=== PATIENT | female | born 1935 | race Caucasian/White ===

== ENCOUNTER → 2022-05-14 | Outpatient (REF) | payer MEDICARE, SELFPAY ==
[2022-05-14 07:22] LABS: ALB/GLOB Ratio 0.8 RATIO (0.9-2.4); AST(SGOT) 16 U/L (15-37); Alanine Aminotransfer ALT/SGPT 23 U/L (13-56); Albumin, Serum 2.6 g/dL (3.2-5.0); Alkaline Phosphatase 69 U/L (45-117); Anion Gap 3 (5-15); BUN 13 mg/dL (7-18); BUN/Creat Ratio 15.7 RATIO (10-20); Calcium,Total 8.4 mg/dL (8.5-10.1); Chloride 108 mmol/L (98-107); Creatinine, Serum 0.83 mg/dL (0.55-1.02); EST Glomerular Filtration Rate 69 mL/min (>60); Est Glom Filt Rate - Afr Amer 84 mL/min (>60); Globulin 3.1 g/dL (2.2-4.2); Glucose 94 mg/dL (74-106); Potassium 3.5 mmol/L (3.5-5.1); Protein, Total 5.7 g/dL (6.4-8.2); Sodium Level 143 mmol/L (136-145); Uric Acid 7.7 mg/dL (2.6-6.0)
[2022-05-14 08:03] LABS: Hematocrit 42.8 % (37-47); Hemoglobin 13.8 g/dL (12.0-15.0); Mean Corp Hgb Conc 32.2 g/dL (32-36); Mean Corpuscular Hgb 30.4 pg (27.0-32.0); Mean Corpuscular Volume 94.3 fL (81-99); Mean Platelet Vol. 9.6 fl (6.2-12.0); Platelet Count 148 K/mm3 (150-450); RBC Distribution Width SD 44.8 fl (35.1-43.9); Red Blood Count 4.54 M/mm3 (4.2-5.4); White Blood Count 5.5 K/mm3 (4.4-11.0)
== END ==
LOC: OLS.DANBUR 05:00
PROVIDERS: Visit Provider Family Medicine
DX: J44.9 Chronic obstructive pulmonary disease, unspecified (principal); I10 Essential (primary) hypertension; I25.10 Atherosclerotic heart disease of native coronary artery without angina pectoris
CPT/HCPCS: 36415; 80053; 84550; 85027

== ENCOUNTER 2023-02-17 18:05 | Emergency (ER) | payer MEDICARE, SELFPAY ==
[2023-02-17 18:06] VITALS: BP 146/83; PULSE 100; RESP 13; TEMP 36.4; O2SAT 96; BMI 24.0
[2023-02-17 19:15] LABS: Absolute Lymphocyte Count 1.64 X10^3/uL (0.83-4.51); Absolute Neutrophil Count 4.3 X10^3/uL (2.0-7.7); Basophil# 0.04 X10^3/uL; Basophil% 0.6 % (0-1); Eosinophils% 5.9 % (0-5); Hematocrit 45.3 % (37-47); Hemoglobin 14.3 g/dL (12.0-15.0); Lymphocyte # 1.64 X10^3/ul (0.83-4.51); Lymphocyte % 24.2 % (19-41); Mean Corp Hgb Conc 31.6 g/dL (32-36); Mean Corpuscular Hgb 30.2 pg (27.0-32.0); Mean Corpuscular Volume 95.6 fL (81-99); Mean Platelet Vol. 9.5 fl (6.2-12.0); Monocyte# 0.42 X10^3/uL; Monocyte% 6.2 % (0-10); NRBC Flagged by Analyzer 0 % (0-5); Neutrophil # 4.27 X10^3/uL (2.7-7.7); Neutrophil % 62.8 % (47-70); Platelet Count 187 K/mm3 (150-450); RBC Distribution Width SD 46.1 fl (35.1-43.9); Red Blood Count 4.74 M/mm3 (4.2-5.4); White Blood Count 6.8 K/mm3 (4.4-11.0)
--- NOTE | 2023-02-17 19:18 | EX.ED.DYSGE1 ---
HPI History of Present Illness Chief Complaint: Edema Informant: patient Onset/Context/Timing Onset: Yesterday Context: Sudden Onset Timing: Intermittent Quality: Swelling Location: Tongue Worsened by: Nothing Relieved by: Nothing Narrative Narrative: Patient presents with tongue and facial swelling that began yesterday. Patient states that yesterday her lips were swollen. Patient states this resolved. Patient states that today her left cheek became swollen and then resolved. Patient states that a few hours ago, her tongue started swelling. Patient was given 0.3 mg of epinephrine subcutaneously at her [facility]. Patient states the swelling is getting better. Patient states she did have some difficulty swallowing when her tongue was more swollen. Patient admits to some shortness of breath. Patient denies any nausea or vomiting. Patient states nothing makes her symptoms worse and nothing makes them better. Patient denies any recent fevers or chills. Patient was recently started on colchicine for a gout flareup. Patient states she has taken colchicine in the past with no reactions. PFS PFS Medical History (Updated 02/17/23 @ 20:[address] Sherman Goldsmith, DO) Coronary artery disease Allergy/AdvReac Type Severity Reaction Status Date / Time No Known Allergies Allergy Unverified 02/17/23 18:23 Surgical History (Updated 02/17/23 @ 19:56 by Marga Holloway) Hx of heart artery stent Social History Smoking Status: Former smoker ROS ROS ED Constitutional Constitutional ED: Denies chills or fever(s) Eyes Eyes: Denies blurry vision or change in vision ENT ENT ED: Denies rhinorrhea or sore throat Cardiovascular Cardiovascular: Denies chest pain or palpitations Respiratory/Chest Respiratory/Chest: Denies cough or dyspnea Gastrointestinal Gastrointestinal: Denies nausea or vomiting Genitourinary Genitourinary ED: Denies dysuria or hematuria Musculoskeletal Musculoskeletal: Denies back pain or neck pain Integumentary Denies abscess or rash Neurologic Neurologic: Denies headache(s) or weakness Allergic/Immunologic Allergic/Immunologic ED: Reports tongue swelling; Denies urticaria EXAM Physical Exam Const Vital Signs: 02/17/23 18:06 02/17/23 18:11 Temperature 97.6 F L Temperature Source Temporal Pulse Rate 100 Respiratory Rate 13 Respiratory Effort Normal Blood Pressure 146/83 H Blood Pressure Mean 104 Pulse Ox 96 Oxygen Delivery Method Room Air Positive well nourished and well developed General Appearance ED: well developed and NAD HEENT Reports moist mucous membranes HEENT Narrative: There is some mild edema of the right side of the tongue. Oropharynx is clear. Airway is patent. Neck is supple. Trachea is midline. There is no JVD. Neck supple and no JVD Resp normal respiratory effort and clear to auscultation bilaterally Cardio regular rate, regular rhythm and no murmurs GI normal to inspection, nondistended, normoactive bowel sounds and non-tender Palpation: soft Extremity normal to inspection General Extremety ED: Negative for edema or tenderness General Extremity: Negative for edema Neuro oriented x3, CN's II-XII intact bilaterally and no sensory deficits noted Sensorium / Orientation: alert Motor Exam: strength 5/5 throughout Psych mental status grossly normal Skin no rashes or lesions noted MDM MDM MDM Narrative Medical decision making narrative: Differential diagnosis includes angioedema, allergic reaction, and medication side effect. CBC will be obtained to assess for leukocytosis and anemia. Basic metabolic profile will be obtained to assess for electrolyte abnormality and renal function. Lab Data Attestation: I reviewed the patient's lab results. Lab results narrative: CBC was reviewed and was within normal limits. Basic metabolic profile was reviewed. Potassium was slightly low at 3.4. BUN was 23 and creatinine was 1.04. Glucose was slightly elevated 139. Labs: Laboratory Results - last 24 hr 02/17/23 19:01 WBC 6.8 RBC 4.74 Hgb 14.3 Hct 45.3 MCV 95.6 MCH 30.2 MCHC 31.6 L RDW Std Deviation 46.1 H RDW Coeff of Claudia 13.0 Plt Count 187 MPV 9.5 Immature Gran % (Auto) 0.300 Neut % (Auto) 62.8 Lymph % (Auto) 24.2 [place] % (Auto) 6.2 Eos % (Auto) 5.9 H Baso % (Auto) 0.6 Absolute Neuts (auto) 4.3 Absolute Lymphs (auto) 1.64 Nucleated RBC % 0 Sodium 144 Potassium 3.4 L Chloride 109 H Carbon Dioxide 29.0 Anion Gap 6 BUN 23 H Creatinine 1.04 H Estim Creat Clear Calc 37.06 Est GFR (MDRD) Af Amer 64 Est GFR (MDRD) Non-Af 53 L BUN/Creatinine Ratio 22.1 H Glucose 139 H Calcium 9.0 Treatment and Re-Evaluation :: Patient was observed here in the emergency department. Patient's swelling has improved. Patient feels better and wants to go home. Patient was instructed to follow-up with her primary care physician in 5 to 7 days. Patient was instructed to hold the lisinopril. Patient was instructed to return if worse in any way. Patient understood and was agreeable with the plan. All questions were answered. Discharge Plan Triage Chief Complaint: Edema ED Provider: Sherman Goldsmith Dx/Rx/DC Orders Clinical Impression: Angioedema, Hypertension Instructions: ED Angioedema Primary Care Provider: Wicho Kuo Referrals: Wicho Kuo MD [Primary Care Provider] - 5-7 Days Activity Restrictions/Additional Instructions: Stop taking your lisinopril. Disposition Disposition: Home, Self Care
[2023-02-17 19:33] LABS: Anion Gap 6 (5-15); BUN 23 mg/dL (7-18); BUN/Creat Ratio 22.1 RATIO (10-20); Chloride 109 mmol/L (98-107); Creatinine, Serum 1.04 mg/dL (0.55-1.02); EST Glomerular Filtration Rate 53 mL/min (>60); Est Glom Filt Rate - Afr Amer 64 mL/min (>60); Estimated Creatinine Clearance 37.06 ml/min; Glucose 139 mg/dL (74-106); Potassium 3.4 mmol/L (3.5-5.1); Sodium Level 144 mmol/L (136-145)
[2023-02-17 21:08] VITALS: BP 127/86; RESP 16
== END 2023-02-17 21:10 | disposition home or self-care (01) ==
PROVIDERS: Emergency Provider Emergency Medicine; PCP Family Medicine; Visit Provider Emergency Medicine
DX: T78.3XXA Angioneurotic edema, initial encounter (principal); Z87.891 Personal history of nicotine dependence; I10 Essential (primary) hypertension; I25.10 Atherosclerotic heart disease of native coronary artery without angina pectoris
CPT/HCPCS: 80048; 85025; 99285; A4216

== ENCOUNTER 2023-12-07 19:01 | Inpatient (IN) | payer MEDICARE, SELFPAY ==
[2023-12-07 19:02] VITALS: BP 153/100; PULSE 118; RESP 23; TEMP 36.1; O2SAT 85; O2SAT 90; BMI 26.2
--- NOTE | 2023-12-07 19:11 | EKG12_ITS ---
Test Reason : DYSRHYTHMIA Blood Pressure : / mmHG Vent. Rate : 107 BPM Atrial Rate : 000 BPM P-R Int : 000 ms QRS Dur : 138 ms QT Int : 364 ms P-R-T Axes : 000 -44 059 degrees QTc Int : 485 ms Atrial fibrillation with rapid ventricular response Left axis deviation Right bundle branch block Abnormal ECG Confirmed by ZAIDA SMITH, MALCOLM ([id number]), fan mail editor SYLWIA WASHBURN ([id number]) on 12/08/2023 10:21:19 AM Referred By: Confirmed By:MALCOLM CERDA MD
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
[2023-12-07 19:25] VITALS: O2SAT 85
--- NOTE | 2023-12-07 19:25 | RAD_ITS ---
STUDY: X-RAY CHEST REASON FOR EXAM: Female, 88 years old. cough TECHNIQUE: AP portable COMPARISON: December 30, 2007 FINDINGS: There is minor discoid atelectasis in left upper lobe. There is slightly increased retrocardiac interstitial density possibly representing infiltrate in the left lower lobe.. There is no demonstrated pleural abnormality. Normal size heart. Normal mediastinum and freddy. Normal visualized pulmonary arteries. Mildly calcified aortic arch and descending thoracic aorta. Normal visualized thoracic spine. Normal visualized ribs, clavicles, and shoulders. There is no demonstrated abnormality of the visualized soft tissue structures of the upper abdomen. RAD/Chest 1 View (Portable) IMPRESSION: Possible left lower lobe interstitial infiltrate. Correlation with lateral view would be helpful for further evaluation. Electronically Signed: Be Robbins MD at 19:52 EDT ,
[2023-12-07] MEDS: 0.9% Normal Saline (1000mL) 1,000 ML 999 ML IV ×2 (19:47→23:45)
[2023-12-07 20:16] LABS: Absolute Lymphocyte Count 1.52 X10^3/uL (0.83-4.51); Absolute Neutrophil Count 6.6 X10^3/uL (2.0-7.7); Basophil# 0.06 X10^3/uL; Basophil% 0.7 % (0-1); Eosinophil# 0.07 X10^3/uL; Eosinophils% 0.8 % (0-5); Hematocrit 53.6 % (37-47); Hemoglobin 16.6 g/dL (12.0-15.0); Lymphocyte # 1.52 X10^3/ul (0.83-4.51); Lymphocyte % 16.9 % (19-41); Mean Corpuscular Hgb 30.9 pg (27.0-32.0); Mean Corpuscular Volume 99.8 fL (81-99); Mean Platelet Vol. 10.6 fl (6.2-12.0); Monocyte# 0.69 X10^3/uL; Monocyte% 7.6 % (0-10); NRBC Flagged by Analyzer 0.2 % (0-5); Neutrophil # 6.59 X10^3/uL (2.7-7.7); Platelet Count 175 K/mm3 (150-450); RBC Distribution Width CV 15.7 % (11.6-14.6); RBC Distribution Width SD 57.3 fl (35.1-43.9); Red Blood Count 5.37 M/mm3 (4.2-5.4)
[2023-12-07 20:18] LABS: Prothrombin Time (Protime)PT. 13.2 SECONDS (11.7-14.9)
[2023-12-07 20:19] LABS: Partial Thromboplast Time 27.8 Seconds (24.1-36.2)
[2023-12-07] MEDS: Ceftriaxone 1 GM/50 ML BAG IV (20:29)
[2023-12-07 20:30] VITALS: BP 134/84; PULSE 95; RESP 23; O2SAT 95
[2023-12-07 20:34] LABS: ALB/GLOB Ratio 0.9 RATIO (0.9-2.4); AST(SGOT) 47 U/L (15-37); Alanine Aminotransfer ALT/SGPT 79 U/L (13-56); Albumin, Serum 3.3 g/dL (3.2-5.0); Alkaline Phosphatase 70 U/L (45-117); Anion Gap 5 (5-15); BUN 27 mg/dL (7-18); BUN/Creat Ratio 23.5 RATIO (10-20); Calcium,Total 9.2 mg/dL (8.5-10.1); Chloride 103 mmol/L (98-107); Creatinine, Serum 1.15 mg/dL (0.55-1.02); EST Glomerular Filtration Rate 47 mL/min (>60); Est Glom Filt Rate - Afr Amer 57 mL/min (>60); Estimated Creatinine Clearance 35.96 ml/min; Globulin 3.5 g/dL (2.2-4.2); Glucose 133 mg/dL (74-106); Potassium 3.8 mmol/L (3.5-5.1); Protein, Total 6.8 g/dL (6.4-8.2); Sodium Level 146 mmol/L (136-145); Troponin-I HS 28 pg/mL (3.0-54.0)
[2023-12-07 20:35] LABS: BNP,B-Type NATRIURETIC PEPTIDE 588.3 pg/mL (0-100)
[2023-12-07 20:50] LABS: Lactic Acid 1.4 mmol/L (0.4-1.9)
--- NOTE | 2023-12-07 21:09 | HP.PCM.HOS_ITS ---
HPI - General General Date of Admission: 12/07/23 Date of Service: 12/07/23 Chief Complaint: Cough and shortness of breath HPI Narrative MILAGRO DELGADO, is a 88 F who presented to [facility] ED on 12/07/2023 with 3-day history of productive cough and shortness of breath. Saw patient at bedside in the ED, daughter present. Patient was laying back comfortably in bed, in no acute distress. She was breathing comfortably on 3 L nasal cannula. She was fatigued appearing but was answering my questions with short appropriate responses. Patient lives at [facility] and she and daughter state that she is typically able to do all her own ADLs without issue. Patient developed a cough with green to yellowish sputum production about 3 days ago. She then started to develop worsening shortness of breath so she came in for further evaluation. Patient denies any fevers or chills or bodyaches. Denies any recent sick contacts that she is aware of. Denies any palpitations. Patient has history of CAD with stenting and hypothyroidism but otherwise reports being in fairly good health. Denies history of A-fib. No other acute concerns at this time. Vitals in ED notable for hypoxia to 85% on room air with improvement to mid 90s on 3 L nasal cannula, mild hypertension and A-fib with heart rate in the 90s to 100s. Labs notable for sodium 146, bicarb 38, BUN 27, creatinine 1.15, AST 47, ALT 79, BNP 588. EKG showed rate controlled A-fib, no ST changes. UA with negative nitrites but 100 leukocyte esterase and 3+ bacteria. Chest x-ray showed possible left lower lobe interstitial infiltrate. CT chest without contrast showed small bilateral pleural effusions with minimal associated airspace disease likely atelectasis rather than pneumonia; also showed diffuse centrilobular emphysema and left upper lobe apparent scarring, as well as cardiomegaly and coronary artery calcifications. [facility] Medical History (Updated 12/08/23 @ 05:[address] Marvin Bach, ) Hypothyroidism Essential (primary) hypertension COPD (chronic obstructive pulmonary disease) Rosacea Coronary artery disease Home Medications ?Medication ?Instructions ?Recorded ?Last Taken ?Type acetaminophen 325 mg tablet (Pain 650 mg PO Q4H PRN pain, fever 12/07/23 Unknown History Relief (acetaminophen)) aspirin 81 mg tablet,delayed 81 mg PO DAILY CAD 12/07/23 Unknown History release (Adult Low Dose Aspirin) atenolol 50 mg tablet 50 mg PO DAILY HTN 12/07/23 Unknown History hydrochlorothiazide 12.5 mg capsule 12.5 mg PO DAILY HTN 12/07/23 Unknown History levothyroxine 50 mcg tablet 50 mcg PO .SUMOWEFRI hypothyroidism 12/07/23 Unknown History levothyroxine 75 mcg tablet 75 mcg PO TUTHSA hypothyroidism 12/07/23 Unknown History loperamide 2 mg capsule 2 mg PO Q6H PRN loose stool 12/07/23 Unknown History (Anti-Diarrheal (loperamide)) magnesium hydroxide 400 mg/5 mL 400 mg PO DAILY PRN constipation 12/07/23 Unknown History oral suspension (Milk of Magnesia) simvastatin 40 mg tablet 40 mg PO QHS 12/07/23 Unknown History Allergy/AdvReac Type Severity Reaction Status Date / Time adhesive tape AdvReac Intermediate Rash Verified 12/07/23 19:41 Surgical History Hx of heart artery stent Social History Smoking Status: Former smoker ROS Constitutional Constitutional: Reports fatigue, malaise and weakness; Denies chills or fever(s) Cardiovascular Cardiovascular: Reports dyspnea on exertion; Denies chest pain, edema, lightheadedness, palpitations, rapid heart rate or syncope Respiratory/Chest Respiratory/Chest: Reports cough and productive cough; Denies shortness of breath at rest or wheezing Gastrointestinal Gastrointestinal: Denies abdominal pain Genitourinary Genitourinary: Denies dysuria Musculoskeletal Musculoskeletal: Denies arthralgias or myalgias Neurologic Neurologic: Denies dizziness, focal weakness or headache(s) Vital Signs Vital Signs Vital Signs: 12/07/23 19:02 12/07/23 19:25 12/07/23 19:25 Temperature 96.9 F L Temperature Source Temporal Pulse Rate 118 H Respiratory Rate 23 H Respiratory Effort Short of Breath Respiratory Depth Shallow Respiratory Pattern Tachypnea Blood Pressure 153/100 H Blood Pressure Mean 117 Pulse Ox 85 Oxygen Delivery Method Room Air Nasal Cannula Room Air Oxygen Flow Rate (L/min) 3 12/07/23 20:30 Temperature Temperature Source Pulse Rate 95 Respiratory Rate 23 H Respiratory Effort Respiratory Depth Respiratory Pattern Blood Pressure 134/84 H Blood Pressure Mean 100 Pulse Ox 95 Oxygen Delivery Method Nasal Cannula Oxygen Flow Rate (L/min) 3 Weight Weight: 76 kg Body Mass Index (BMI) 26.2 Physical Exam Const alert, oriented x3, no apparent distress and average body habitus Constitutional Narrative: Elderly female, fatigued appearing, otherwise laying comfortably in bed, answering questions with short appropriate sponsors, in no acute distress. General Appearance: cooperative and comfortable HEENT normocephalic, head/scalp atraumatic, hearing grossly normal bilaterally and nasal mucous membranes and turbinates normal HEENT Narrative: Dry mucous membranes. Eyes PERRL, EOMs intact bilaterally and conjunctivae normal Neck full ROM Chest inspection of chest normal Resp normal respiratory effort and no use of accessory muscles Resp Narrative: Decreased breath sounds at bilateral lung bases with mild crackles noted in upper airways bilaterally. No wheezing noted. Breathing comfortably on 3 L nasal cannula at rest. Cardio no murmurs and peripheral pulses 2+ throughout Cardio Narrative: A-fib, rate controlled. GI normal to inspection, nondistended, normoactive bowel sounds, soft to palpation, non-tender and non-distended Back/Spine normal ROM Extremity normal to inspection, full ROM and no pedal edema Skin no rashes or lesions noted Neuro moves all extremities and no focal motor deficits Speech: speech normal Psych mental status grossly normal Results Lab / Micro Data 12/07/23 19:20 12/07/23 19:20 Labs: Laboratory Results - last 24 hr 12/07/23 19:20: WBC 9.0, RBC 5.37, Hgb 16.6 H, Hct 53.6 H, MCV 99.8 H, MCH 30.9, MCHC 31.0 L, RDW Std Deviation 57.3 H, RDW Coeff of Claudia 15.7 H, Plt Count 175, MPV 10.6, Immature Gran % (Auto) 1.000 H, Neut % (Auto) 73.0 H, Lymph % (Auto) 16.9 L, [place] % (Auto) 7.6, Eos % (Auto) 0.8, Baso % (Auto) 0.7, Absolute Neuts (auto) 6.6, Absolute Lymphs (auto) 1.52, Nucleated RBC % 0.2, PT 13.2, INR 1.0, APTT 27.8, Sodium 146 H, Potassium 3.8, Chloride 103, Carbon Dioxide 38.0 H, Anion Gap 5, BUN 27 H, Creatinine 1.15 H, Estim Creat Clear Calc 35.96, Est GFR (MDRD) Af Amer 57 L, Est GFR (MDRD) Non-Af 47 L, BUN/Creatinine Ratio 23.5 H, G lucose 133 H, Lactic Acid 1.4, Calcium 9.2, Total Bilirubin 0.50, AST 47 H, ALT 79 H, Alkaline Phosphatase 70, Troponin I High Sens 28, B-Natriuretic Peptide 588.3 H, Total Protein 6.8, Albumin 3.3, Globulin 3.5, Albumin/Globulin Ratio 0.9 Imaging Radiology Impression Chest X-Ray 12/07/23 19:25 IMPRESSION: Possible left lower lobe interstitial infiltrate. Correlation with lateral view would be helpful for further evaluation. Electronically Signed: Be Robbins MD at 19:52 EDT Reading Location ID and State: [address] [place] [address] Tel , Service support , Assessment & Plan Assessment/Plan (1) Hypoxia: (2) Heart failure: (3) Emphysema/COPD: (4) Afib: (5) Acute cystitis: PLAN: Plan Patient is an 88-year-old female who presented to [facility] ED on 12/07/2023 with cough and worsening shortness of breath. 1. Suspected new heart failure diagnosis with CHF exacerbation and acute hypoxia, history of emphysema, concern for community-acquired pneumonia ? Admit under inpatient status to PCU. Initially with higher concern for community-acquired pneumonia given reported short history of greenish to yellowish sputum production with worsening cough. However, presentation seems more consistent with new onset heart failure possibly secondary to significant underlying pulmonary disease. Echo ordered for further evaluation. Given IV fluid bolus in the ED, will hold on further IV fluids. Will hold on diuretics for now but low threshold to initiate. Will continue IV antibiotics for both pneumonia and acute cystitis as noted below. Respiratory PCR panel and COVID/flu/RSV negative. Sputum culture and urine antigens pending. Wean supplemental oxygen as able. Will start DuoNebs as needed. 2. New onset atrial fibrillation ? Patient appeared to be in A-fib with rate in the 90s to 100s in the ED; EKG confirmed rate controlled A-fib. No prior history of A-fib noted. Patient asymptomatic. Unclear if acute A-fib or if A-fib has been going on for some time. [id number] score of 4. Discussed with patient and daughter at bedside and they were agreeable to starting anticoagulation. Started Eliquis 5 mg twice daily. Likely rate control due to home atenolol but given new onset A-fib and suspected new heart failure, will switch to Coreg now. Continue cardiac monitoring. Can consider cardiology consult as needed. 3. Elevated serum creatinine ? Creatinine 1.15 on admit. Baseline appears to be around 0.8-1.0. Suspect mild prerenal injury from either mild volume depletion versus mild cardiorenal syndrome from heart failure as noted above. Holding on further IV fluids or diuretics for now as noted above. Monitor daily BMP and urine output. 4. Mildly elevated LFTs ?AST and ALT mildly elevated on admit. Suspect this may be due to vascular congestion in setting of volume overload. No right upper quadrant pain or discomfort. No need for imaging at this time, trend LFTs. 5. Acute cystitis ? UA with negative nitrites but 100 leukocyte esterase and 3+ bacteria, and patient reporting mild dysuria. Treating with IV antibiotics as noted above. Follow-up urine culture. 6. Acute on chronic debility ? PT/OT/case management consulted. Lives in assisted living, now with worsening debility due to acute concerns as noted above. May require SNF placement on discharge. 7. History of CAD with stenting, hypertension, hyperlipidemia ? Remote history of stenting. Will continue home aspirin and statin. Holding home medical thiazide and switched to Coreg as noted above. 8. Hypothyroidism ? Continue home Synthroid. DVT prophylaxis: Not indicated, on therapeutic Eliquis CODE STATUS: DNR CCA, DNI Expected disposition: TBD Total clinical time spent by myself addressing the patient's medical issues, reviewing all the data, and collaborating with patient's care team: 75 minutes. Charges/Coding Visit Charges Inpatient E&M: 99546 Init Hosp L3
[2023-12-07] MEDS: Azithromycin 500 MG in Dextrose 5%-Water (250mL Bag) 250 ML 250 MG IV (21:10)
[2023-12-07 22:07] VITALS: BP 113/61; PULSE 107; RESP 30; TEMP 36.3; O2SAT 93
--- NOTE | 2023-12-07 22:20 | CT_ITS ---
EXAM: CT CHEST WITHOUT INTRAVENOUS CONTRAST CLINICAL INDICATION: suspected CAP w/ hypoxia, CXR unclear TECHNIQUE: Helically acquired images were obtained of the chest without intravenous contrast. This CT exam was performed using one or more of the following dose reduction techniques: automated exposure control, adjustment of the mA and/or kV according to patient size, and/or use of iterative reconstruction technique. COMPARISON: Chest radiograph on the same date. FINDINGS: LUNGS AND PLEURAL SPACES: Small bilateral pleural effusions with minimal associated airspace disease which is likely atelectasis rather than pneumonia. Apparent scarring in the left upper lobe with retraction of the left fissure and/or chronic atelectasis. Diffuse centrilobular emphysema. No mass. HEART: Cardiomegaly and coronary artery calcifications. No pericardial effusion. MEDIASTINUM: No significant abnormality. No mediastinal or hilar adenopathy. Esophagus is unremarkable. No hiatal hernia. THYROID: No significant abnormality. No thyroid lesions. BONES/JOINTS: Chronic appearing lower thoracic mild superior endplate compression deformities. Degenerative changes throughout the spine. Likely chronic sternal fracture. No suspicious lytic or blastic abnormality. VASCULATURE: Atherosclerosis of the aorta and its branch vessels. Thoracic aorta is non-dilated. KIDNEYS AND URETERS: Right renal cysts are present for which no follow-up is indicated. CT/Chest without Contrast IMPRESSION: 1. Small bilateral pleural effusions with minimal associated airspace disease which is likely atelectasis rather than pneumonia. Apparent scarring in the left upper lobe with retraction of the left fissure and/or chronic atelectasis. Diffuse centrilobular emphysema. 2. Cardiomegaly and coronary artery calcifications. No pericardial effusion. Electronically Signed: Darell Robb DO at 23:49 EDT ,
--- NOTE | 2023-12-07 22:35 | ECHOCS_ITS ---
Reason For Study: Afib, Aflutter Procedure This was a 2D Doppler, Color Flow transthoracic echocardiogram. Contrast injection was performed. Exam performed portable in patient room. Left Ventricle Normal LV size. The left ventricular ejection fraction is 30 %. There is moderate to severe global hypokinesis of the left ventricle. Right Ventricle Mildly dilated right ventricle. Mild global right ventricular systolic dysfunction. Atria Normal left atrium. The right atrium is mildly enlarged. Mitral Valve Bileaflet diffuse mitral valve thickening. Moderately severe (3+) mitral valve insufficiency. Tricuspid Valve Normal tricuspid valve. Moderate (2+) tricuspid valve insufficiency. Pulmonary artery systolic pressure is 48 mmHg. Aortic Valve Trisinus/trileaflet aortic valve. Pulmonic Valve Normal pulmonic valve. Mild (1+) pulmonic valve insufficiency. Great Vessels Calcified aortic root. The pulmonary artery is normal size. The inferior vena cava is dilated. and partially collapses. Pericardium/Pleural No pericardial effusion. Medication Diluted definity 2ml given slow IV push to enhance endocardial definition. MMode/2D Measurements & Calculations LVIDd: 4.4 cm IVSd: 1.00 cm Ao root diam: 2.8 cm LVIDs: 3.8 cm LVPWd: 0.94 cm RVDd: 3.8 cm FS: 14.5 % LAV(MOD-sp4): 49.7 ml LVAd ap4: 15.8 cm2 SV(MOD-sp4): 10.4 ml LVLd ap4: 6.3 cm EDV(MOD-sp4): 32.4 ml EDV(sp4-el): 33.7 ml LVAs ap4: 12.0 cm2 LVLs ap4: 5.4 cm ESV(MOD-sp4): 21.9 ml ESV(sp4-el): 22.8 ml EF(MOD-sp4): 32.2 % EF(sp4-el): 32.3 % SV(sp4-el): 10.9 ml LA A4 area: 19.8 cm2 LA dimension(2D): 4.2 cm RA A4 area: 23.6 cm2 Time Measurements MV dec time: 0.12 sec Doppler Measurements & Calculations MV E max gaudencio: 57.2 cm/sec Lat Peak E' Gaudencio: 12.7 cm/sec Med Peak E' Gaudencio: 5.8 cm/sec E/E' lat: 4.5 E/E' med: 9.8 Ao V2 max: 104.5 cm/sec LV V1 max: 56.9 cm/sec PA V2 max: 43.9 cm/sec Ao max P.4 mmHg LV V1 max P.3 mmHg Ao V2 mean: 67.5 cm/sec LV V1 mean P.64 mmHg Ao mean P.2 mmHg LV V1 mean: 36.7 cm/sec Ao V2 VTI: 16.9 cm LV V1 VTI: 9.0 cm AV (velocity ratio): 0.53 PI end-d gaudencio: 167.9 cm/sec TR max gaudencio: 320.1 cm/sec TR max P.0 mmHg ECHO/Echo Complete W/ Contrast Interpretation Summary The left ventricular ejection fraction is 30 %. Normal LV size. There is moderate to severe global hypokinesis of the left ventricle. Moderately severe (3+) mitral valve insufficiency. Pulmonary artery systolic pressure is 48 mmHg. Contrast injection was performed. Ordering Physician: Marvin Bach Referring Physician: Wicho Kuo Performed By: Vonnie Malin RVT, RDCS and Student
[2023-12-07 23:08] VITALS: BMI 25.5
[2023-12-07 23:36] VITALS: BP 116/62; PULSE 73; RESP 24; TEMP 36.4; O2SAT 97
[2023-12-07] MEDS: 0.9% Saline Lock 10 ML Syringe IV (23:46)
[2023-12-08] VITALS (22 sets, daily range): BP systolic 94–130; BP diastolic 61–82; PULSE 68–107; RESP 12–28; TEMP 36.3–36.6; O2SAT 82–99
[2023-12-08 02:16] LABS: Color, Urine Amber (Yellow); Glucose, Dipstick Normal (Normal); Ketone-Dipstick Negative (Negative); Leukocyte Esterase-Dipstick 100 /ul (Negative); Mucous, Urine 0 SEEN /hpf (<or=2+); Nitrite-Dipstick Negative (Negative); Occult Blood-Urine 250 /ul (Negative); Protein-Dipstick 100 mg/dl (Negative); Specific Gravity, Urine 1.025 (1.002-1.030); Urine Bilirubin Dipstick Negative (Negative); Urine Clarity Sl. Cloudy (Clear); Urine Urobilinogen 1 mg/dl (Normal)
[2023-12-08 02:35] LABS: Bacteria 3+ /hpf (None Seen); Fine Granular Cast- Urine 5-10 SEEN /lpf (0-5); Hyaline Cast 5-10 SEEN /lpf (0-5); Red Blood Cells-Urine 25-50 SEEN /hpf (0-5); Squamous Epithelial Cells - UA 5-10 SEEN /hpf (5-10); White Blood Cells 10-25 SEEN /hpf (0-5)
[2023-12-08 05:38] LABS: Allen Test Positive; Base Excess 10 mmol/L (-2 to +2); Bicarbonate 36.7 mmol/L (22-26); Blood Gas Specimen Type ART; Mode Not entered; O2 Delivery Device Cannula; PO2 71 mmHG (75-100); SITE R Radial; SO2 90 % (95-99); Total Carbon Dioxide 39 mmol/L; pCO2 82.9 mmHg (35-45); pH 7.25 (7.35-7.45)
[2023-12-08 06:09] LABS: Hematocrit 50.3 % (37-47); Hemoglobin 14.9 g/dL (12.0-15.0); Mean Corp Hgb Conc 29.6 g/dL (32-36); Mean Corpuscular Hgb 30.8 pg (27.0-32.0); Mean Corpuscular Volume 103.9 fL (81-99); Platelet Count 142 K/mm3 (150-450); RBC Distribution Width CV 15.6 % (11.6-14.6); RBC Distribution Width SD 59.6 fl (35.1-43.9); Red Blood Count 4.84 M/mm3 (4.2-5.4)
[2023-12-08 06:42] LABS: ALB/GLOB Ratio 0.9 RATIO (0.9-2.4); AST(SGOT) 84 U/L (15-37); Alanine Aminotransfer ALT/SGPT 105 U/L (13-56); Albumin, Serum 2.8 g/dL (3.2-5.0); Alkaline Phosphatase 57 U/L (45-117); Anion Gap 5 (5-15); BUN 28 mg/dL (7-18); Calcium,Total 8.5 mg/dL (8.5-10.1); Chloride 104 mmol/L (98-107); Creatinine, Serum 1.12 mg/dL (0.55-1.02); EST Glomerular Filtration Rate 49 mL/min (>60); Est Glom Filt Rate - Afr Amer 59 mL/min (>60); Glucose 117 mg/dL (74-106); Potassium 3.8 mmol/L (3.5-5.1); Protein, Total 5.8 g/dL (6.4-8.2); Sodium Level 145 mmol/L (136-145)
[2023-12-08] MEDS: Levothyroxine 50 MCG Tablet PO (06:51)
[2023-12-08 09:10] LABS: Allen Test Positive; Base Excess 11 mmol/L (-2 to +2); Bicarbonate 37.1 mmol/L (22-26); Blood Gas Specimen Type ART; Mode Not entered; O2 Delivery Device BiPAP; PO2 82 mmHG (75-100); SITE L Radial; SO2 95 % (95-99); Total Carbon Dioxide 39 mmol/L; pCO2 70.6 mmHg (35-45); pH 7.33 (7.35-7.45)
--- NOTE | 2023-12-08 09:14 | CPS ---
Critical value verified times two. showed results to charge nurse Antonietta Capps. Cor texted results to DR. Devries.
[2023-12-08] MEDS: APIXABAN 5 MG TABLET PO ×2 (12:10→21:41)
[2023-12-08] MEDS: Aspirin E.C. 81 MG Tablet PO (12:10)
[2023-12-08] MEDS: Carvedilol 6.25 MG Tablet PO (12:10)
--- NOTE | 2023-12-08 15:10 | PCM.PROGNOTE ---
Subjective Subjective Patient seen and examined. She was on BIPAP. She said she was feeling better. She denied any fever, chills, cough, chest pain, palpitations, dizziness, nausea, vomiting or any other symptoms. Objective Data Objective Data Vital Signs: Vital Signs Temp Pulse Resp BP Pulse Ox O2 Del Method O2 Flow Rate 97.5 F L 102 H 24 H 106/67 98 Bi-pap 5 12/08/23 09:00 12/08/23 14:25 12/08/23 14:25 12/08/23 09:00 12/08/23 14:25 12/08/23 09:00 12/08/23 05:36 FiO2 30 12/08/23 14:25 Oxygen Flow Rate (L/min) 5 Oxygen Delivery Method Bi-pap Weight: 163 lb 5.8 oz Body Mass Index (BMI) 25.5 Intake & Output: Intake and Output for Last 24 Hours 12/06/23 12/07/23 12/08/23 23:59 23:59 23:59 Intake Total 1388.25 / 1388.25 60 / 60 Output Total 300 / 300 Balance 1388.25 / 1388.25 -240 / -240 Lab / Micro Data 12/08/23 05:35 12/08/23 05:35 Labs: Laboratory Results - last 24 hr 12/07/23 19:20: WBC 9.0, RBC 5.37, Hgb 16.6 H, Hct 53.6 H, MCV 99.8 H, MCH 30.9, MCHC 31.0 L, RDW Std Deviation 57.3 H, RDW Coeff of Claudia 15.7 H, Plt Count 175, MPV 10.6, Immature Gran % (Auto) 1.000 H, Neut % (Auto) 73.0 H, Lymph % (Auto) 16.9 L, [place] % (Auto) 7.6, Eos % (Auto) 0.8, Baso % (Auto) 0.7, Absolute Neuts (auto) 6.6, Absolute Lymphs (auto) 1.52, Nucleated RBC % 0.2, PT 13.2, INR 1.0, APTT 27.8, Sodium 146 H, Potassium 3.8, Chloride 103, Carbon Dioxide 38.0 H, Anion Gap 5, BUN 27 H, Creatinine 1.15 H, Estim Creat Clear Calc 35.96, Est GFR (MDRD) Af Amer 57 L, Est GFR (MDRD) Non-Af 47 L, BUN/Creatinine Ratio 23.5 H, Glucose 133 H, Lactic Acid 1.4, Calcium 9.2, Total Bilirubin 0.50, AST 47 H, ALT 79 H, Alkaline Phosphatase 70, Troponin I High Sens 28, B-Natriuretic Peptide 588.3 H, Total Protein 6.8, Albumin 3.3, Globulin 3.5, Albumin/Globulin Ratio 0.9 12/08/23 01:41: Urine Color Adelina, Urine Clarity Sl. Cloudy, Urine pH 5.0, Ur Specific [place] 1.025, Urine Protein 100 H, Urine Glucose (UA) Normal, Urine Ketones Negative, Urine Occult Blood 250 H, Urine Nitrite Negative, Urine Bilirubin Negative, Urine Urobilinogen 1 H, Ur Leukocyte Esterase 100 H, Urine RBC 25-50 SEEN, Urine WBC 10-25 SEEN, Ur Squamous Epith Cells 5-10 SEEN, Urine Bacteria 3+, Hyaline Casts 5-10 SEEN, Fine Granular Casts 5-10 SEEN, Urine Mucus 0 SEEN 12/08/23 05:35: WBC 8.0, RBC 4.84, Hgb 14.9, Hct 50.3 H, MCV 103.9 H, MCH 30.8, MCHC 29.6 L, RDW Std Deviation 59.6 H, RDW Coeff of Claudia 15.6 H, Plt Count 142 L, MPV 10.0, Sodium 145, Potassium 3.8, Chloride 104, Carbon Dioxide 36.0 H, Anion Gap 5, BUN 28 H, Creatinine 1.12 H, Estim Creat Clear Calc 36.50, Est GFR (MDRD) Af Amer 59 L, Est GFR (MDRD) Non-Af 49 L, BUN/Creatinine Ratio 25.0 H, Glucose 117 H, Calcium 8.5, Total Bilirubin 0.40, AST 84 H, ALT 105 H, Alkaline Phosphatase 57, Total Protein 5.8 L, Albumin 2.8 L, Globulin 3.0, Albumin/Globulin Ratio 0.9 Micro: Microbiology 12/08/23 01:41 Urine, Random Legionella Antigen - Final 12/08/23 01:41 Urine, Random Streptococcus pneumoniae Antigen (M - Final 12/08/23 00:15 Mucosa - Nasopharyngeal Respiratory Panel (PCR) - Final 12/07/23 20:24 Mucosa - Nose SARS-CoV-2, Influenza & RSV (PCR) - Final ABG Data ABG results: ABG 12/08/23 12/08/23 05:32 09:07 Specimen Type ART ART Sample Site R Radial L Radial pH 7.25 L 7.33 L Bicarbonate Actual 36.7 H 37.1 H Total CO2 39 39 Base Excess 10 H 11 H O2 Saturation 90 L 95 O2 % 5.0 30.0 ABG pCO2 82.9 H* 70.6 H* ABG pO2 71 L 82 Rehan Test Positive Positive O2 Delivery Device Cannula BiPAP Vent Mode Not entered Not entered Crit Call To/Read Back Yes Yes Blood Gas Notified Whom DR BACH Blood Gas Notified Time 05:35:24 Radiography Diagnostic Testing: Radiology Impression Chest X-Ray 12/07/23 19:25 IMPRESSION: Possible left lower lobe interstitial infiltrate. Correlation with lateral view would be helpful for further evaluation. Electronically Signed: Be Robbins MD at 19:52 EDT , Chest CT 12/07/23 22:20 IMPRESSION: 1. Small bilateral pleural effusions with minimal associated airspace disease which is likely atelectasis rather than pneumonia. Apparent scarring in the left upper lobe with retraction of the left fissure and/or chronic atelectasis. Diffuse centrilobular emphysema. 2. Cardiomegaly and coronary artery calcifications. No pericardial effusion. Electronically Signed: Darell Robb DO at 23:49 EDT , Echocardiogram 12/07/23 22:35 Interpretation Summary The left ventricular ejection fraction is 30 %. Normal LV size. There is moderate to severe global hypokinesis of the left ventricle. Moderately severe (3+) mitral valve insufficiency. Pulmonary artery systolic pressure is 48 mmHg. Contrast injection was performed. Ordering Physician: Marvin Bach Referring Physician: Wicho Kuo Performed By: Dea Kaiser RDLAZARUS, Vonnie and Student Physical Exam Const alert and oriented x3 Constitutional Narrative: frail General Appearance: cooperative HEENT normocephalic, head/scalp atraumatic, moist oral mucous membranes and oropharynx normal Eyes PERRL and EOMs intact bilaterally Neck no lymphadenopathy and supple Lymph Lymphatic: no lymphadenopathy noted and no lymphedema noted Resp Resp Narrative: mildly diminished breath sounds bibasally, no wheezes or crackles. Cardio regular rate, regular rhythm, S1 normal heart sound, S2 normal heart sound and no murmurs GI normal to inspection, nondistended, normoactive bowel sounds, soft to palpation, non-tender and non-distended Extremity normal capillary refill, no clubbing, cyanosis or edema and no calf tenderness General Extremity: no tenderness to palpation of joints or extremities Skin General Skin Exam: no breakdown Neuro CN's II-XII intact bilaterally, no focal motor deficits, no sensory deficits noted and deep tendon reflexes 2+ bilaterally Motor Exam: strength 5/5 throughout and general weakness Psych thought process normal and cooperative Appearance: appropriate Assessment & Plan Assessment/Plan (1) Heart failure: (2) Emphysema/COPD: (3) Hypoxia: PLAN: Plan #Acute hypoxic and hypercapnic respiratory failure Likely due to heart failure. She was admitted with a complaint of productive cough and shortness of breath. Cough was productive of green to yellowish sputum. Chest x-ray showed possible left lower lobe interstitial infiltrate. BNP was also elevated due to She has been diuresed with IV Lasix and started on IV ceftriaxone and azithromycin. 2D echo done showed EF of 30% with moderate to severe global hypokinesis. Will consult cardiology. ABG done showed evidence of hypercapnia and hypoxia. Patient currently on BiPAP. Wean off BiPAP as tolerated. Titrate oxygen to maintain saturation above 90%. BNP was 588. Thanks. #New onset A-fib: Patient was in A-fib on admission. Robbi Vasc score is 4. Patient started on Eliquis 5 mg twice daily on admission. Now on Coreg. Check TSH. #Pulmonary hypertension: Pulmonary artery pressure is 48 mmHg from the 2D echo. Likely due to the heart failure. Should improve as her heart failure improves #UTI: Urinalysis showed 3+ bacteria. On IV ceftriaxone. Urine cultures pending. #History of CAD s/p stents: On aspirin and statin #Hypothyroidism: on synthroid. Check TSH./ DVT prophylaxis: on eliquis Charges/Coding Visit Charges Inpatient E&M: 70590 Subs Hosp L3
--- NOTE | 2023-12-08 16:34 | PCM.CONS.C ---
Assessment & Plan Assessment/Plan (1) Afib: PLAN: Patient presents with atrial fibrillation which appears to be a fairly recent onset. It appears that she is a candidate for anticoagulation and this has been instituted. Her rate is controlled at the moment but with her left ventricular systolic dysfunction I may suggest that we switch her to carvedilol 25 mg twice a day. (2) Heart failure: PLAN: She does have evidence of congestive heart failure evidenced by the elevated natruretic peptide. The etiology of the above is likely related to atrial fibrillation, mitral regurgitation and the resulting reduced left ventricular systolic function. She does have an eccentric mitral regurgitant jet and will benefit from diuretics, beta-blockers, SGLT2 inhibitors. I do not think that she is a candidate for any invasive therapy at this particular time. HPI Consult Data Date of Consult: 12/08/23 HPI Narrative HPI Narrative: MILAGRO DELGADO, is a 88 F who presents to the emergency room with an apparent 3 to 4-day history of shortness of breath and a cough. Patient is in assisted living at [facility] and is able to do her own activities of daily living without any major problems. She started developing worsening cough, shortness of breath, but denied any fevers. In the emergency room she was noted to be mildly hypoxic and in atrial fibrillation with rapid ventricular response rate. Her electrolytes appear to be fairly decent with an elevated natruretic peptide level. She also was noted to have a urinary tract infection. She was placed on the BiPAP machine and overnight and underwent an echocardiogram which demonstrated globally reduced left ventricular ejection fraction estimated to be 30% plus minus. Cardiology was called for further evaluation and management. [facility] Medical History Hypothyroidism Essential (primary) hypertension COPD (chronic obstructive pulmonary disease) Rosacea Coronary artery disease Home Medications ?Medication ?Instructions ?Recorded ?Last Taken ?Type acetaminophen 325 mg tablet (Pain 650 mg PO Q4H PRN pain, fever 12/07/23 Unknown History Relief (acetaminophen)) aspirin 81 mg tablet,delayed 81 mg PO DAILY CAD 12/07/23 Unknown History release (Adult Low Dose Aspirin) atenolol 50 mg tablet 50 mg PO DAILY HTN 12/07/23 Unknown History hydrochlorothiazide 12.5 mg capsule 12.5 mg PO DAILY HTN 12/07/23 Unknown History levothyroxine 50 mcg tablet 50 mcg PO .SUMOWEFRI hypothyroidism 12/07/23 Unknown History levothyroxine 75 mcg tablet 75 mcg PO TUTHSA hypothyroidism 12/07/23 Unknown History loperamide 2 mg capsule 2 mg PO Q6H PRN loose stool 12/07/23 Unknown History (Anti-Diarrheal (loperamide)) magnesium hydroxide 400 mg/5 mL 400 mg PO DAILY PRN constipation 12/07/23 Unknown History oral suspension (Milk of Magnesia) simvastatin 40 mg tablet 40 mg PO QHS 12/07/23 Unknown History Allergy/AdvReac Type Severity Reaction Status Date / Time adhesive tape AdvReac Intermediate Rash Verified 12/07/23 19:41 Surgical History Hx of heart artery stent Social History Smoking Status: Former smoker ROS Constitutional Constitutional: Denies fever(s) or weight loss Eyes Eyes: Reports systems reviewed and no addt'l complaints, except as documented ENT HEENT: Reports systems reviewed and no addt'l complaints, except as documented Cardiovascular Cardiovascular: Denies chest pain at rest, chest pain with activity, dyspnea at rest, dyspnea on exertion, edema, palpitations or paroxysmal nocturnal dyspnea Respiratory/Chest Respiratory/Chest: Denies dyspnea on exertion, productive cough, shortness of breath at rest or shortness of breath with exertion Gastrointestinal Gastrointestinal: Denies change in bowel habits, nausea, vomiting or weight changes Genitourinary Genitourinary: Denies difficulty urinating Musculoskeletal Musculoskeletal: Denies joint stiffness or muscle weakness Integumentary Integumentary: Denies lesions Neurologic Neurologic: Denies dizziness or syncope Psychiatric Psychiatric: Denies anxiety Endocrine Endocrinology: Denies excessive sweating or fatigue Hematologic/Lymphatic Hematologic/Lymphatic: Denies anemia Allergic/Immunologic Allergic/Immunologic: Denies seasonal rhinorrhea Physical Exam Const alert, oriented x3 and no apparent distress General Appearance: cooperative HEENT hearing grossly normal bilaterally Head and Scalp: atraumatic Eyes EOMs intact bilaterally Neck General: normal visual inspection Chest inspection of chest normal and palpation of chest normal Resp normal respiratory effort Auscultation: clear to auscultation bilaterally Cardio S1 normal heart sound and S2 normal heart sound Jugular Venous Distention: JVD Rhythm: abnormal rhythm irregularly irregular GI normal to inspection, nondistended, normoactive bowel sounds Extremity normal capillary refill and no pedal edema Peripheral Pulses: Yes pulses 2+ throughout and femoral pulses present Skin no rashes or lesions noted Neuro oriented x3 and CN's II-XII intact bilaterally Psych Appearance: grossly normal and appropriate Risk Stratification Risk Stratification Applicable: No Objective Data Vital Signs: Vital Signs Temp Pulse Resp BP Pulse Ox O2 Del Method O2 Flow Rate 97.9 F 102 H 24 H 100/61 98 Bi-pap 30 12/08/23 14:00 12/08/23 14:25 12/08/23 14:25 12/08/23 14:00 12/08/23 14:25 12/08/23 15:51 12/08/23 10:01 FiO2 35 12/08/23 15:51 Oxygen Flow Rate (L/min) 30 Oxygen Delivery Method Bi-pap Weight: 163 lb 5.8 oz Body Mass Index (BMI) 25.5 Intake & Output: Intake and Output for Last 24 Hours 12/06/23 12/07/23 12/08/23 23:59 23:59 23:59 Intake Total 1388.25 / 1388.25 60 / 60 Output Total 300 / 300 Balance 1388.25 / 1388.25 -240 / -240 Lab / Micro Data 12/08/23 05:35 12/08/23 05:35 Labs: Laboratory Results - last 24 hr 12/07/23 19:20: WBC 9.0, RBC 5.37, Hgb 16.6 H, Hct 53.6 H, MCV 99.8 H, MCH 30.9, MCHC 31.0 L, RDW Std Deviation 57.3 H, RDW Coeff of Claudia 15.7 H, Plt Count 175, MPV 10.6, Immature Gran % (Auto) 1.000 H, Neut % (Auto) 73.0 H, Lymph % (Auto) 16.9 L, [place] % (Auto) 7.6, Eos % (Auto) 0.8, Baso % (Auto) 0.7, Absolute Neuts (auto) 6.6, Absolute Lymphs (auto) 1.52, Nucleated RBC % 0.2, PT 13.2, INR 1.0, APTT 27.8, Sodium 146 H, Potassium 3.8, Chloride 103, Carbon Dioxide 38.0 H, Anion Gap 5, BUN 27 H, Creatinine 1.15 H, Estim Creat Clear Calc 35.96, Est GFR (MDRD) Af Amer 57 L, Est GFR (MDRD) Non-Af 47 L, BUN/Creatinine Ratio 23.5 H, Glucose 133 H, Lactic Acid 1.4, Calcium 9.2, Total Bilirubin 0.50, AST 47 H, ALT 79 H, Alkaline Phosphatase 70, Troponin I High Sens 28, B-Natriuretic Peptide 588.3 H, Total Protein 6.8, Albumin 3.3, Globulin 3.5, Albumin/Globulin Ratio 0.9 12/08/23 01:41: Urine Color Adelina, Urine Clarity Sl. Cloudy, Urine pH 5.0, Ur Specific [place] 1.025, Urine Protein 100 H, Urine Glucose (UA) Normal, Urine Ketones Negative, Urine Occult Blood 250 H, Urine Nitrite Negative, Urine Bilirubin Negative, Urine Urobilinogen 1 H, Ur Leukocyte Esterase 100 H, Urine RBC 25-50 SEEN, Urine WBC 10-25 SEEN, Ur Squamous Epith Cells 5-10 SEEN, Urine Bacteria 3+, Hyaline Casts 5-10 SEEN, Fine Granular Casts 5-10 SEEN, Urine Mucus 0 SEEN 12/08/23 05:35: WBC 8.0, RBC 4.84, Hgb 14.9, Hct 50.3 H, MCV 103.9 H, MCH 30.8, MCHC 29.6 L, RDW Std Deviation 59.6 H, RDW Coeff of Claudia 15.6 H, Plt Count 142 L, MPV 10.0, Sodium 145, Potassium 3.8, Chloride 104, Carbon Dioxide 36.0 H, Anion Gap 5, BUN 28 H, Creatinine 1.12 H, Estim Creat Clear Calc 36.50, Est GFR (MDRD) Af Amer 59 L, Est GFR (MDRD) Non-Af 49 L, BUN/Creatinine Ratio 25.0 H, Glucose 117 H, Calcium 8.5, Total Bilirubin 0.40, AST 84 H, ALT 105 H, Alkaline Phosphatase 57, Total Protein 5.8 L, Albumin 2.8 L, Globulin 3.0, Albumin/Globulin Ratio 0.9 Micro: Microbiology 12/08/23 01:41 Urine, Random Legionella Antigen - Final 12/08/23 01:41 Urine, Random Streptococcus pneumoniae Antigen (M - Final 12/08/23 00:15 Mucosa - Nasopharyngeal Respiratory Panel (PCR) - Final 12/07/23 20:24 Mucosa - Nose SARS-CoV-2, Influenza & RSV (PCR) - Final ABG Data ABG results: ABG 12/08/23 12/08/23 05:32 09:07 Specimen Type ART ART Sample Site R Radial L Radial pH 7.25 L 7.33 L Bicarbonate Actual 36.7 H 37.1 H Total CO2 39 39 Base Excess 10 H 11 H O2 Saturation 90 L 95 O2 % 5.0 30.0 ABG pCO2 82.9 H* 70.6 H* ABG pO2 71 L 82 Rehan Test Positive Positive O2 Delivery Device Cannula BiPAP Vent Mode Not entered Not entered Crit Call To/Read Back Yes Yes Blood Gas Notified Whom DR BACH Blood Gas Notified Time 05:35:24 Cardiology Labs/Tests 12/07/23 19:20: WBC 9.0, RBC 5.37, Hgb 16.6 H, Hct 53.6 H, MCV 99.8 H, MCH 30.9, MCHC 31.0 L, Plt Count 175, MPV 10.6, Immature Gran % (Auto) 1.000 H, Neut % (Auto) 73.0 H, Lymph % (Auto) 16.9 L, [place] % (Auto) 7.6, Eos % (Auto) 0.8, Baso % (Auto) 0.7, Absolute Neuts (auto) 6.6, Nucleated RBC % 0.2, PT 13.2, INR 1.0, APTT 27.8, Sodium 146 H, Potassium 3.8, Chloride 103, Carbon Dioxide 38.0 H, Anion Gap 5, BUN 27 H, Creatinine 1.15 H, Est GFR (MDRD) Af Amer 57 L, Est GFR (MDRD) Non-Af 47 L, BUN/Creatinine Ratio 23.5 H, Glucose 133 H, Lactic Acid 1.4, Calcium 9.2, Total Bilirubin 0.50, B-Natriuretic Peptide 588.3 H 12/08/23 01:41: Urine Color Adelina, Urine Clarity Sl. Cloudy, Urine pH 5.0, Ur Specific [place] 1.025, Urine Protein 100 H, Urine Glucose (UA) Normal, Urine Ketones Negative, Urine Occult Blood 250 H, Urine Nitrite Negative, Urine Bilirubin Negative, Urine Urobilinogen 1 H, Ur Leukocyte Esterase 100 H, Urine RBC 25-50 SEEN, Urine WBC 10-25 SEEN 12/08/23 05:32: pH 7.25 L, Bicarbonate Actual 36.7 H, Base Excess 10 H, O2 Saturation 90 L, ABG pCO2 82.9 H*, ABG pO2 71 L, Rehan Test Positive 12/08/23 05:35: WBC 8.0, RBC 4.84, Hgb 14.9, Hct 50.3 H, MCV 103.9 H, MCH 30.8, MCHC 29.6 L, Plt Count 142 L, MPV 10.0, Sodium 145, Potassium 3.8, Chloride 104, Carbon Dioxide 36.0 H, Anion Gap 5, BUN 28 H, Creatinine 1.12 H, Est GFR (MDRD) Af Amer 59 L, Est GFR (MDRD) Non-Af 49 L, BUN/Creatinine Ratio 25.0 H, Glucose 117 H, Calcium 8.5, Total Bilirubin 0.40 12/08/23 09:07: pH 7.33 L, Bicarbonate Actual 37.1 H, Base Excess 11 H, O2 Saturation 95, ABG pCO2 70.6 H*, ABG pO2 82, Rehan Test Positive Rhythm: EKG: Atrial fibrillation with a rapid ventricular response rate. ECHO: Left ventricular systolic dysfunction with global reduced ejection fraction is noted to be 30% Stress Test: Cardiac Cath: PCI: CT Surgery: Holter monitor: EPS: PPM: CXR: Chest CT Scan: Radiography Diagnostic Testing: Radiology Impression Chest X-Ray 12/07/23 19:25 IMPRESSION: Possible left lower lobe interstitial infiltrate. Correlation with lateral view would be helpful for further evaluation. Electronically Signed: Be Robbins MD at 19:52 EDT Reading Location ID and State: [facility] / [place] Tel , Service support , Chest CT 12/07/23 22:20 IMPRESSION: 1. Small bilateral pleural effusions with minimal associated airspace disease which is likely atelectasis rather than pneumonia. Apparent scarring in the left upper lobe with retraction of the left fissure and/or chronic atelectasis. Diffuse centrilobular emphysema. 2. Cardiomegaly and coronary artery calcifications. No pericardial effusion. Electronically Signed: Darell Robb DO at 23:49 EDT , Echocardiogram 12/07/23 22:35 Interpretation Summary The left ventricular ejection fraction is 30 %. Normal LV size. There is moderate to severe global hypokinesis of the left ventricle. Moderately severe (3+) mitral valve insufficiency. Pulmonary artery systolic pressure is 48 mmHg. Contrast injection was performed. Ordering Physician: Marvin Bach Referring Physician: Wicho Kuo Performed By: Vonnie Malin RVT, RDCS and Student
[2023-12-08 16:56] LABS: Allen Test Positive; Base Excess 12 mmol/L (-2 to +2); Bicarbonate 36.9 mmol/L (22-26); Blood Gas Specimen Type ART; Mode Not entered; O2 Delivery Device BiPAP; PO2 95 mmHG (75-100); SITE L Radial; SO2 97 % (95-99); Total Carbon Dioxide 39 mmol/L; pCO2 61.3 mmHg (35-45); pH 7.39 (7.35-7.45)
[2023-12-08] MEDS: Carvedilol 12.5 MG Tablet PO (17:19)
[2023-12-08] MEDS: Furosemide 40 MG/4 ML Vial IV (17:20)
[2023-12-08] MEDS: Ceftriaxone 1 GM/50 ML BAG IV (20:58)
[2023-12-08] MEDS: Atorvastatin Calcium 20 MG Tablet PO (21:41)
[2023-12-08] MEDS: Azithromycin 500 MG in Dextrose 5%-Water (250mL Bag) 250 ML 250 MG IV (21:42)
[2023-12-09] VITALS (33 sets, daily range): BP systolic 69–125; BP diastolic 48–98; PULSE 78–121; RESP 12–35; TEMP 36.2–36.6; O2SAT 91–100
[2023-12-09] MEDS: Levothyroxine 75 MCG Tablet PO (05:15)
[2023-12-09 05:45] LABS: Absolute Lymphocyte Count 1.17 X10^3/uL (0.83-4.51); Basophil# 0.03 X10^3/uL; Basophil% 0.4 % (0-1); Eosinophil# 0.09 X10^3/uL; Eosinophils% 1.3 % (0-5); Hematocrit 46.5 % (37-47); Lymphocyte # 1.17 X10^3/ul (0.83-4.51); Mean Corp Hgb Conc 30.1 g/dL (32-36); Mean Corpuscular Hgb 30.8 pg (27.0-32.0); Mean Corpuscular Volume 102.2 fL (81-99); Mean Platelet Vol. 9.8 fl (6.2-12.0); Monocyte# 0.59 X10^3/uL; Monocyte% 8.6 % (0-10); NRBC Flagged by Analyzer 0 % (0-5); Neutrophil # 4.97 X10^3/uL (2.7-7.7); Platelet Count 128 K/mm3 (150-450); RBC Distribution Width CV 15.2 % (11.6-14.6); Red Blood Count 4.55 M/mm3 (4.2-5.4); White Blood Count 6.9 K/mm3 (4.4-11.0)
[2023-12-09 06:05] LABS: Anion Gap 3 (5-15); BUN 29 mg/dL (7-18); BUN/Creat Ratio 25.9 RATIO (10-20); Calcium,Total 8.3 mg/dL (8.5-10.1); Chloride 101 mmol/L (98-107); Creatinine, Serum 1.12 mg/dL (0.55-1.02); EST Glomerular Filtration Rate 49 mL/min (>60); Est Glom Filt Rate - Afr Amer 59 mL/min (>60); Glucose 132 mg/dL (74-106); Potassium 3.4 mmol/L (3.5-5.1); Sodium Level 144 mmol/L (136-145)
--- NOTE | 2023-12-09 07:36 | PN.CARD_ITS ---
Subjective Subjective Patient seen and evaluated. Sleeping soundly. Objective Data Vital Signs: Vital Signs Temp Pulse Resp BP Pulse Ox O2 Del Method O2 Flow Rate 97.6 F L 92 18 112/62 100 Nasal Cannula 3 12/09/23 03:35 12/09/23 03:35 12/09/23 03:35 12/09/23 03:35 12/09/23 05:05 12/09/23 05:05 12/09/23 05:05 FiO2 30 12/09/23 03:35 Oxygen Flow Rate (L/min) 3 Oxygen Delivery Method Nasal Cannula Weight: 163 lb 5.8 oz Body Mass Index (BMI) 25.5 Intake & Output: Intake and Output for Last 24 Hours 12/07/23 12/08/23 12/09/23 23:59 23:59 23:59 Intake Total 1388.25 / 1388.25 110 / 110 255 / 255 Output Total 950 / 950 300 / 300 Balance 1388.25 / 1388.25 -840 / -840 -45 / -45 Lab / Micro Data 12/09/23 05:33 12/09/23 05:33 Labs: Laboratory Results - last 24 hr 12/09/23 05:33: WBC 6.9, RBC 4.55, Hgb 14.0, Hct 46.5, MCV 102.2 H, MCH 30.8, M CHC 30.1 L, RDW Std Deviation 58.0 H, RDW Coeff of Claudia 15.2 H, Plt Count 128 L, MPV 9.8, Immature Gran % (Auto) 0.700, Neut % (Auto) 72.0 H, Lymph % (Auto) 17.0 L, [place] % (Auto) 8.6, Eos % (Auto) 1.3, Baso % (Auto) 0.4, Absolute Neuts (auto) 5.0, Absolute Lymphs (auto) 1.17, Nucleated RBC % 0, Sodium 144, Potassium 3.4 L , Chloride 101, Carbon Dioxide 40.0 H, Anion Gap 3 L, BUN 29 H, Creatinine 1.12 H, Estim Creat Clear Calc 36.50, Est GFR (MDRD) Af Amer 59 L, Est GFR (MDRD) Non-Af 49 L, BUN/Creatinine Ratio 25.9 H, Glucose 132 H, Calcium 8.3 L Micro: Microbiology 12/08/23 01:41 Urine, Random Legionella Antigen - Final 12/08/23 01:41 Urine, Random Streptococcus pneumoniae Antigen (M - Final 12/08/23 00:15 Mucosa - Nasopharyngeal Respiratory Panel (PCR) - Final ABG Data ABG results: ABG 12/08/23 12/08/23 09:07 16:53 Specimen Type ART ART Sample Site L Radial L Radial pH 7.33 L 7.39 Bicarbonate Actual 37.1 H 36.9 H Total CO2 39 39 Base Excess 11 H 12 H O2 Saturation 95 97 O2 % 30.0 30.0 ABG pCO2 70.6 H* 61.3 H ABG pO2 82 95 Rehan Test Positive Positive O2 Delivery Device BiPAP BiPAP Vent Mode Not entered Not entered Crit Call To/Read Back Yes Cardiology Labs/Tests 12/08/23 09:07: pH 7.33 L, Bicarbonate Actual 37.1 H, Base Excess 11 H, O2 Saturation 95, ABG pCO2 70.6 H*, ABG pO2 82, Rehan Test Positive 12/08/23 16:53: pH 7.39, Bicarbonate Actual 36.9 H, Base Excess 12 H, O2 Saturation 97, ABG pCO2 61.3 H, ABG pO2 95, Rehan Test Positive 12/09/23 05:33: WBC 6.9, RBC 4.55, Hgb 14.0, Hct 46.5, MCV 102.2 H, MCH 30.8, M CHC 30.1 L, Plt Count 128 L, MPV 9.8, Immature Gran % (Auto) 0.700, Neut % (Auto) 72.0 H, Lymph % (Auto) 17.0 L, [place] % (Auto) 8.6, Eos % (Auto) 1.3, Baso % (Auto) 0.4, Absolute Neuts (auto) 5.0, Nucleated RBC % 0, Sodium 144, P otassium 3.4 L, Chloride 101, Carbon Dioxide 40.0 H, Anion Gap 3 L, BUN 29 H, C reatinine 1.12 H, Est GFR (MDRD) Af Amer 59 L, Est GFR (MDRD) Non-Af 49 L, B UN/Creatinine Ratio 25.9 H, Glucose 132 H, Calcium 8.3 L Rhythm: EKG: ECHO: Stress Test: Cardiac Cath: PCI: CT Surgery: Holter monitor: EPS: PPM: CXR: Chest CT Scan: Radiography Diagnostic Testing: Radiology Impression Echocardiogram 12/07/23 22:35 Interpretation Summary The left ventricular ejection fraction is 30 %. Normal LV size. There is moderate to severe global hypokinesis of the left ventricle. Moderately severe (3+) mitral valve insufficiency. Pulmonary artery systolic pressure is 48 mmHg. Contrast injection was performed. Ordering Physician: Marvin Bach Referring Physician: Wicho Kuo Performed By: Vonnie Malin RVT, RDCS and Student Physical Exam Const alert, oriented x3 and no apparent distress General Appearance: cooperative HEENT hearing grossly normal bilaterally Head and Scalp: atraumatic Eyes EOMs intact bilaterally Neck General: normal visual inspection Chest inspection of chest normal and palpation of chest normal Resp normal respiratory effort Auscultation: clear to auscultation bilaterally Cardio S1 normal heart sound and S2 normal heart sound Jugular Venous Distention: JVD Rhythm: abnormal rhythm irregularly irregular GI normal to inspection, nondistended, normoactive bowel sounds Extremity normal capillary refill and no pedal edema Peripheral Pulses: Yes pulses 2+ throughout and femoral pulses present Skin no rashes or lesions noted Neuro oriented x3 and CN's II-XII intact bilaterally Psych Appearance: grossly normal and appropriate Assessment & Plan Assessment/Plan (1) Afib: PLAN: Patient presents with atrial fibrillation which appears to be a fairly recent onset. It appears that she is a candidate for anticoagulation and this has been instituted. Her rate is controlled at the moment but with her left ventricular systolic dysfunction I may suggest that we continue her carvedilol 25 mg twice a day. She seems to be doing quite well. No other therapy at this particular time (2) Heart failure: PLAN: She does have evidence of congestive heart failure evidenced by the elevated natruretic peptide. The etiology of the above is likely related to atrial fibrillation, mitral regurgitation and the resulting reduced left ventricular systolic function. She does have an eccentric mitral regurgitant jet and will benefit from diuretics, beta-blockers, SGLT2 inhibitors. I do not think that she is a candidate for any invasive therapy at this particular time.
[2023-12-09] MEDS: Aspirin E.C. 81 MG Tablet PO (08:47)
[2023-12-09] MEDS: Carvedilol 12.5 MG Tablet PO ×2 (08:47→20:30)
[2023-12-09] MEDS: Furosemide 40 MG/4 ML Vial IV (08:47)
[2023-12-09] MEDS: APIXABAN 5 MG TABLET PO ×2 (08:47→20:30)
[2023-12-09] MEDS: Potassium Chloride Oral Tablet 20 MEQ 40 MEQ PO (08:47)
--- NOTE | 2023-12-09 09:38 | CASEMGMT ---
Addendum entered by Lexi Amezcua 12/09/23 09:49: Fax confirmation rec'd. Lexi Amezcua DC Planning Asst. Original Note: Discharge Planning Updates faxed to [facility]. Per [facility], pt was not on O2 while there. SW updated. Lexi Amezcua DC Planning Asst.
--- NOTE | 2023-12-09 10:39 | PN_ITS ---
Subjective Subjective Patient seen and examined. She feels much better today. She is down to 3 L of oxygen. She denies any cough or palpitation, chest pain, dizziness, nausea or vomiting or any other symptoms. Review of systems otherwise negative. Objective Data Objective Data Vital Signs: Vital Signs Temp Pulse Resp BP Pulse Ox O2 Del Method O2 Flow Rate 97.1 F L 96 20 H 101/57 L 93 Nasal Cannula 3 12/09/23 08:44 12/09/23 08:44 12/09/23 08:44 12/09/23 08:44 12/09/23 08:44 12/09/23 08:44 12/09/23 08:44 FiO2 30 12/09/23 03:35 Oxygen Flow Rate (L/min) 3 Oxygen Delivery Method Nasal Cannula Weight: 163 lb 5.8 oz Body Mass Index (BMI) 25.5 Intake & Output: Intake and Output for Last 24 Hours 12/07/23 12/08/23 12/09/23 23:59 23:59 23:59 Intake Total 1388.25 / 1388.25 110 / 110 255 / 255 Output Total 950 / 950 300 / 300 Balance 1388.25 / 1388.25 -840 / -840 -45 / -45 Lab / Micro Data 12/09/23 05:33 12/09/23 05:33 Labs: Laboratory Results - last 24 hr 12/09/23 05:33: WBC 6.9, RBC 4.55, Hgb 14.0, Hct 46.5, MCV 102.2 H, MCH 30.8, M CHC 30.1 L, RDW Std Deviation 58.0 H, RDW Coeff of Claudia 15.2 H, Plt Count 128 L, MPV 9.8, Immature Gran % (Auto) 0.700, Neut % (Auto) 72.0 H, Lymph % (Auto) 17.0 L, [place] % (Auto) 8.6, Eos % (Auto) 1.3, Baso % (Auto) 0.4, Absolute Neuts (auto) 5.0, Absolute Lymphs (auto) 1.17, Nucleated RBC % 0, Sodium 144, Potassium 3.4 L , Chloride 101, Carbon Dioxide 40.0 H, Anion Gap 3 L, BUN 29 H, Creatinine 1.12 H, Estim Creat Clear Calc 36.50, Est GFR (MDRD) Af Amer 59 L, Est GFR (MDRD) Non-Af 49 L, BUN/Creatinine Ratio 25.9 H, Glucose 132 H, Calcium 8.3 L Micro: Microbiology 12/08/23 01:41 Urine, Random Legionella Antigen - Final 12/08/23 01:41 Urine, Random Streptococcus pneumoniae Antigen (M - Final 12/08/23 00:15 Mucosa - Nasopharyngeal Respiratory Panel (PCR) - Final 12/07/23 20:24 Mucosa - Nose SARS-CoV-2, Influenza & RSV (PCR) - Final ABG Data ABG results: ABG 12/08/23 16:53 Specimen Type ART Sample Site L Radial pH 7.39 Bicarbonate Actual 36.9 H Total CO2 39 Base Excess 12 H O2 Saturation 97 O2 % 30.0 ABG pCO2 61.3 H ABG pO2 95 Rehan Test Positive O2 Delivery Device BiPAP Vent Mode Not entered Radiography Diagnostic Testing: Radiology Impression Echocardiogram 12/07/23 22:35 Interpretation Summary The left ventricular ejection fraction is 30 %. Normal LV size. There is moderate to severe global hypokinesis of the left ventricle. Moderately severe (3+) mitral valve insufficiency. Pulmonary artery systolic pressure is 48 mmHg. Contrast injection was performed. Ordering Physician: Marvin Bach Referring Physician: Wicho Kuo Performed By: Vonnie Malin RVT, RDCS and Student Physical Exam Const alert, oriented x3, no apparent distress and average body habitus Constitutional Narrative: frail General Appearance: cooperative and comfortable HEENT normocephalic, head/scalp atraumatic, hearing grossly normal bilaterally, nasal mucous membranes and turbinates normal, moist oral mucous membranes and oropharynx normal Eyes PERRL, EOMs intact bilaterally and conjunctivae normal Neck full ROM, no lymphadenopathy and supple Lymph Lymphatic: no lymphadenopathy noted and no lymphedema noted Chest inspection of chest normal Resp normal respiratory effort and no use of accessory muscles Resp Narrative: mildly diminished breath sounds bibasally, no wheezes or crackles.on 3L of oxygen, now off BIPAP. Cardio regular rate, regular rhythm, S1 normal heart sound, S2 normal heart sound, no murmurs and peripheral pulses 2+ throughout Cardio Narrative: A-fib, rate controlled. GI normal to inspection, nondistended, normoactive bowel sounds, soft to palpation, non-tender and non-distended Back/Spine normal ROM Extremity normal to inspection, full ROM, normal capillary refill, no clubbing, cyanosis or edema, no calf tenderness and no pedal edema General Extremity: no tenderness to palpation of joints or extremities Skin no rashes or lesions noted General Skin Exam: no breakdown Neuro CN's II-XII intact bilaterally, moves all extremities, no focal motor deficits, no sensory deficits noted and deep tendon reflexes 2+ bilaterally Speech: speech normal Motor Exam: strength 5/5 throughout and general weakness Psych mental status grossly normal, thought process normal and cooperative Appearance: appropriate Assessment & Plan Assessment/Plan (1) Heart failure: (2) Emphysema/COPD: (3) Hypoxia: PLAN: Plan #Acute hypoxic and hypercapnic respiratory failure * Likely due to heart failure. She was admitted with a complaint of productive cough and shortness of breath. Cough was productive of green to yellowish sputum. * Chest x-ray showed possible left lower lobe interstitial infiltrate. * Now off BiPAP and on 3 L of oxygen by nasal cannula. * on IV lasix. Will switch to PO lasix * Also on IV ceftriaxone and azithromycin due to concerns for probable pneumonia. * 2D echo done showed EF of 30% with moderate to severe global hypokinesis. * Cardiology on board, with his symptoms being thought to be due to her new onset A-fib. Carvedilol increased to 6.25 mg twice daily. * Titrate oxygen to maintain saturation above 90%. * #New onset A-fib: * Patient was in A-fib on admission. * Robbi Vasc score is 4. * Patient started on Eliquis 5 mg twice daily on admission. Now on Coreg. TSH within normal limits. * #Acute heart failure with reduced ejection fraction: Likely due to new onset A- fib. Management as above. On Lasix and carvedilol. #Pulmonary hypertension: Pulmonary artery pressure is 48 mmHg from the 2D echo. Likely due to the heart failure. Should improve as her heart failure improves #UTI: Urinalysis showed 3+ bacteria. On IV ceftriaxone. Urine cultures pending. #History of CAD s/p stents: On aspirin and statin #Hypothyroidism: on synthroid. Check TSH./ DVT prophylaxis: on eliquis Charges/Coding Visit Charges Inpatient E&M: 64016 Subs Hosp L2
[2023-12-09 11:40] LABS: Thyroid Stim Hormone (TSH) 2.74 uIU/mL (0.358-3.74)
[2023-12-09 15:58] LABS: Absolute Lymphocyte Count 1.08 X10^3/uL (0.83-4.51); Absolute Neutrophil Count 4.9 X10^3/uL (2.0-7.7); Basophil# 0.04 X10^3/uL; Basophil% 0.6 % (0-1); Eosinophil# 0.09 X10^3/uL; Eosinophils% 1.4 % (0-5); Hematocrit 47.7 % (37-47); Hemoglobin 14.2 g/dL (12.0-15.0); Lymphocyte # 1.08 X10^3/ul (0.83-4.51); Lymphocyte % 16.3 % (19-41); Mean Corp Hgb Conc 29.8 g/dL (32-36); Mean Corpuscular Volume 104.1 fL (81-99); Monocyte# 0.47 X10^3/uL; Monocyte% 7.1 % (0-10); NRBC Flagged by Analyzer 0 % (0-5); Neutrophil # 4.92 X10^3/uL (2.7-7.7); Platelet Count 133 K/mm3 (150-450); RBC Distribution Width CV 15.2 % (11.6-14.6); RBC Distribution Width SD 58.4 fl (35.1-43.9); Red Blood Count 4.58 M/mm3 (4.2-5.4); White Blood Count 6.6 K/mm3 (4.4-11.0)
[2023-12-09] MEDS: 0.9% Normal Saline (500mL Bag) 500 ML 999 ML IV (18:07)
[2023-12-09] MEDS: Amiodarone 200 MG Tablet PO (18:40)
[2023-12-09] MEDS: Atorvastatin Calcium 20 MG Tablet PO (20:30)
[2023-12-09] MEDS: Ceftriaxone 1 GM/50 ML BAG IV (20:37)
[2023-12-09] MEDS: 0.9% Saline Lock 10 ML Syringe IV (20:37)
[2023-12-09] MEDS: Azithromycin 500 MG in Dextrose 5%-Water (250mL Bag) 250 ML 250 MG IV (22:25)
[2023-12-09] MEDS: Lactated Ringers 500 ML 999 ML IV (23:59)
[2023-12-10] VITALS (37 sets, daily range): BP systolic 85–127; BP diastolic 52–91; PULSE 84–118; RESP 12–42; TEMP 36.5–37.1; O2SAT 86–100
[2023-12-10] MEDS: 0.9% Saline Lock 10 ML Syringe IV (00:01)
--- NOTE | 2023-12-10 05:00 | CPS ---
In report RT had said wanted IPAP decreased d/t low blood pressure. On 04/23 tV was only 187. IPAP was then increased to 16 to get volumes over 250.
[2023-12-10] MEDS: Levothyroxine 50 MCG Tablet PO (05:25)
[2023-12-10 05:45] LABS: Absolute Lymphocyte Count 0.97 X10^3/uL (0.83-4.51); Absolute Neutrophil Count 4.8 X10^3/uL (2.0-7.7); Basophil# 0.04 X10^3/uL; Basophil% 0.6 % (0-1); Eosinophil# 0.09 X10^3/uL; Eosinophils% 1.4 % (0-5); Hematocrit 47.4 % (37-47); Hemoglobin 13.9 g/dL (12.0-15.0); Lymphocyte # 0.97 X10^3/ul (0.83-4.51); Lymphocyte % 15.1 % (19-41); Mean Corp Hgb Conc 29.3 g/dL (32-36); Mean Corpuscular Hgb 30.5 pg (27.0-32.0); Mean Corpuscular Volume 104.2 fL (81-99); Mean Platelet Vol. 9.7 fl (6.2-12.0); Monocyte# 0.46 X10^3/uL; Monocyte% 7.2 % (0-10); NRBC Flagged by Analyzer 0 % (0-5); Neutrophil # 4.81 X10^3/uL (2.7-7.7); Neutrophil % 74.9 % (47-70); Platelet Count 113 K/mm3 (150-450); RBC Distribution Width CV 14.9 % (11.6-14.6); RBC Distribution Width SD 57.7 fl (35.1-43.9); Red Blood Count 4.55 M/mm3 (4.2-5.4); White Blood Count 6.4 K/mm3 (4.4-11.0)
[2023-12-10 06:52] LABS: Anion Gap 3 (5-15); BUN 26 mg/dL (7-18); BUN/Creat Ratio 22.4 RATIO (10-20); Calcium,Total 8.3 mg/dL (8.5-10.1); Chloride 102 mmol/L (98-107); Creatinine, Serum 1.16 mg/dL (0.55-1.02); EST Glomerular Filtration Rate 47 mL/min (>60); Est Glom Filt Rate - Afr Amer 57 mL/min (>60); Estimated Creatinine Clearance 35.25 ml/min; Glucose 117 mg/dL (74-106); Potassium 3.9 mmol/L (3.5-5.1); Sodium Level 145 mmol/L (136-145)
--- NOTE | 2023-12-10 08:47 | PN.CARD_ITS ---
Subjective Subjective Patient seen and evaluated. Objective Data Vital Signs: Vital Signs Temp Pulse Resp BP Pulse Ox O2 Del Method O2 Flow Rate 97.8 F 99 31 H 102/60 95 Nasal Cannula 3 12/10/23 04:00 12/10/23 07:00 12/10/23 07:00 12/10/23 07:00 12/10/23 07:46 12/10/23 07:46 12/10/23 07:46 FiO2 3 12/10/23 02:00 Oxygen Flow Rate (L/min) 3 Oxygen Delivery Method Nasal Cannula Weight: 163 lb 5.8 oz Body Mass Index (BMI) 25.5 Intake & Output: Intake and Output for Last 24 Hours 12/08/23 12/09/23 12/10/23 23:59 23:59 23:59 Intake Total 110 / 110 1180 / 1180 500 / 500 Output Total 950 / 950 950 / 950 200 / 200 Balance -840 / -840 230 / 230 300 / 300 Lab / Micro Data 12/10/23 05:32 12/10/23 05:32 Labs: Laboratory Results - last 24 hr 12/09/23 05:33: TSH 2.74 12/09/23 15:46: WBC 6.6, RBC 4.58, Hgb 14.2, Hct 47.7 H, MCV 104.1 H, MCH 31.0, MCHC 29.8 L, RDW Std Deviation 58.4 H, RDW Coeff of Claudia 15.2 H, Plt Count 133 L, MPV 10.0, Immature Gran % (Auto) 0.600, Neut % (Auto) 74.0 H, Lymph % (Auto) 16.3 L, [place] % (Auto) 7.1, Eos % (Auto) 1.4, Baso % (Auto) 0.6, Absolute Neuts (auto) 4.9, Absolute Lymphs (auto) 1.08, Nucleated RBC % 0 12/10/23 05:32: WBC 6.4, RBC 4.55, Hgb 13.9, Hct 47.4 H, MCV 104.2 H, MCH 30.5, MCHC 29.3 L, RDW Std Deviation 57.7 H, RDW Coeff of Claudia 14.9 H, Plt Count 113 L, MPV 9.7, Immature Gran % (Auto) 0.800, Neut % (Auto) 74.9 H, Lymph % (Auto) 15.1 L, [place] % (Auto) 7.2, Eos % (Auto) 1.4, Baso % (Auto) 0.6, Absolute Neuts (auto) 4.8, Absolute Lymphs (auto) 0.97, Nucleated RBC % 0, Sodium 145, Potassium 3.9, Chloride 102, Carbon Dioxide 40.0 H, Anion Gap 3 L, BUN 26 H, Creatinine 1.16 H, Estim Creat Clear Calc 35.25, Est GFR (MDRD) Af Amer 57 L, Est GFR (MDRD) Non-Af 47 L, BUN/Creatinine Ratio 22.4 H, Glucose 117 H, Calcium 8.3 L Cardiology Labs/Tests 12/09/23 15:46: WBC 6.6, RBC 4.58, Hgb 14.2, Hct 47.7 H, MCV 104.1 H, MCH 31.0, MCHC 29.8 L, Plt Count 133 L, MPV 10.0, Immature Gran % (Auto) 0.600, Neut % (Auto) 74.0 H, Lymph % (Auto) 16.3 L, [place] % (Auto) 7.1, Eos % (Auto) 1.4, Baso % (Auto) 0.6, Absolute Neuts (auto) 4.9, Nucleated RBC % 0 12/10/23 05:32: WBC 6.4, RBC 4.55, Hgb 13.9, Hct 47.4 H, MCV 104.2 H, MCH 30.5, MCHC 29.3 L, Plt Count 113 L, MPV 9.7, Immature Gran % (Auto) 0.800, Neut % (Auto) 74.9 H, Lymph % (Auto) 15.1 L, [place] % (Auto) 7.2, Eos % (Auto) 1.4, Baso % (Auto) 0.6, Absolute Neuts (auto) 4.8, Nucleated RBC % 0, Sodium 145, Potassium 3.9, Chloride 102, Carbon Dioxide 40.0 H, Anion Gap 3 L, BUN 26 H, C reatinine 1.16 H, Est GFR (MDRD) Af Amer 57 L, Est GFR (MDRD) Non-Af 47 L, B UN/Creatinine Ratio 22.4 H, Glucose 117 H, Calcium 8.3 L Rhythm: EKG: ECHO: Stress Test: Cardiac Cath: PCI: CT Surgery: Holter monitor: EPS: PPM: CXR: Chest CT Scan: Assessment & Plan Assessment/Plan (1) Afib: PLAN: Patient presents with atrial fibrillation which appears to be a fairly recent onset. It appears that she is a candidate for anticoagulation and this has been instituted. Her rate is controlled at the moment but with her left ventricular systolic dysfunction I may suggest that we continue her carvedilol 3.125 mg twice a day. Amiodarone 200mg bid She seems to be doing quite well. No other therapy at this particular time (2) Heart failure: PLAN: She does have evidence of congestive heart failure evidenced by the elevated natruretic peptide. The etiology of the above is likely related to atrial fibrillation, mitral regurgitation and the resulting reduced left ventricular systolic function. She does have an eccentric mitral regurgitant jet and will benefit from diuretics, beta-blockers, SGLT2 inhibitors. I do not think that she is a candidate for any invasive therapy at this particular time.
[2023-12-10] MEDS: Amiodarone 200 MG Tablet PO ×2 (08:58→20:49)
[2023-12-10] MEDS: APIXABAN 5 MG TABLET PO ×2 (08:58→20:50)
[2023-12-10] MEDS: Aspirin E.C. 81 MG Tablet PO (08:58)
--- NOTE | 2023-12-10 12:59 | CASEMGMT ---
Social Work SW attempted to speak w/pt, pt is not able to speak w/SW at present, sleeping and on bipap. SW called daughter Leonie, message left. SW will continue to follow, it is anticipated pt will return to [facility] when ready though not clear yet when pt will be ready for discharge. CHERELLE Amaya
--- NOTE | 2023-12-10 13:12 | PN_ITS ---
Subjective Subjective Patient seen and examined. She had no complaints. This morning, patient told me that she felt like giving up on life and wanted to check out. When asked to clarify what she meant by checking out she stated that she wanted to . She repeated the same to the nurse. Patient was hemodynamically stable but subsequently required BiPAP as she became hypoxic when she got up. Patient also noted to be hypotensive and so her carvedilol was reduced. Objective Data Objective Data Vital Signs: Vital Signs Temp Pulse Resp BP Pulse Ox O2 Del Method O2 Flow Rate 97.8 F 106 H 22 H 127/88 H 94 Bi-pap 2 12/10/23 12:00 12/10/23 12:00 12/10/23 12:00 12/10/23 12:00 12/10/23 12:00 12/10/23 12:00 12/10/23 10:06 FiO2 24 12/10/23 12:00 Oxygen Flow Rate (L/min) 2 Oxygen Delivery Method Bi-pap Weight: 163 lb 5.8 oz Body Mass Index (BMI) 25.5 Intake & Output: Intake and Output for Last 24 Hours 12/08/23 12/09/23 12/10/23 23:59 23:59 23:59 Intake Total 110 / 110 1180 / 1180 500 / 500 Output Total 950 / 950 950 / 950 200 / 200 Balance -840 / -840 230 / 230 300 / 300 Lab / Micro Data 12/10/23 05:32 12/10/23 05:32 Labs: Laboratory Results - last 24 hr 12/09/23 15:46: WBC 6.6, RBC 4.58, Hgb 14.2, Hct 47.7 H, MCV 104.1 H, MCH 31.0, MCHC 29.8 L, RDW Std Deviation 58.4 H, RDW Coeff of Claudia 15.2 H, Plt Count 133 L, MPV 10.0, Immature Gran % (Auto) 0.600, Neut % (Auto) 74.0 H, Lymph % (Auto) 16.3 L, [place] % (Auto) 7.1, Eos % (Auto) 1.4, Baso % (Auto) 0.6, Absolute Neuts (auto) 4.9, Absolute Lymphs (auto) 1.08, Nucleated RBC % 0 12/10/23 05:32: WBC 6.4, RBC 4.55, Hgb 13.9, Hct 47.4 H, MCV 104.2 H, MCH 30.5, MCHC 29.3 L, RDW Std Deviation 57.7 H, RDW Coeff of Claudia 14.9 H, Plt Count 113 L, MPV 9.7, Immature Gran % (Auto) 0.800, Neut % (Auto) 74.9 H, Lymph % (Auto) 15.1 L, [place] % (Auto) 7.2, Eos % (Auto) 1.4, Baso % (Auto) 0.6, Absolute Neuts (auto) 4.8, Absolute Lymphs (auto) 0.97, Nucleated RBC % 0, Sodium 145, Potassium 3.9, Chloride 102, Carbon Dioxide 40.0 H, Anion Gap 3 L, BUN 26 H, Creatinine 1.16 H, Estim Creat Clear Calc 35.25, Est GFR (MDRD) Af Amer 57 L, Est GFR (MDRD) Non-Af 47 L, BUN/Creatinine Ratio 22.4 H, Glucose 117 H, Calcium 8.3 L Micro: Microbiology 12/08/23 01:41 Urine, Clean Catch Urine Culture - Final Culture exhibits no growth. 12/07/23 19:20 Blood Culture (Wb) - Anticubital Right Blood Culture - Preliminary No growth in 48 hours. 12/08/23 01:41 Urine, Random Legionella Antigen - Final 12/08/23 01:41 Urine, Random Streptococcus pneumoniae Antigen (M - Final 12/08/23 00:15 Mucosa - Nasopharyngeal Respiratory Panel (PCR) - Final 12/07/23 20:24 Mucosa - Nose SARS-CoV-2, Influenza & RSV (PCR) - Final Physical Exam Const alert, oriented x3, no apparent distress and average body habitus Constitutional Narrative: frail General Appearance: cooperative and comfortable HEENT normocephalic, head/scalp atraumatic, hearing grossly normal bilaterally, nasal mucous membranes and turbinates normal, moist oral mucous membranes and oropharynx normal Eyes PERRL, EOMs intact bilaterally and conjunctivae normal Neck full ROM, no lymphadenopathy and supple Lymph Lymphatic: no lymphadenopathy noted and no lymphedema noted Chest inspection of chest normal Resp normal respiratory effort and no use of accessory muscles Resp Narrative: mildly diminished breath sounds bibasally, no wheezes or crackles.on initially on 2L of oxygen, but now back on BIPAP. Cardio S1 normal heart sound, S2 normal heart sound, no murmurs and peripheral pulses 2+ throughout Cardio Narrative: A-fib, tachycardic Rate: tachycardic GI normal to inspection, nondistended, normoactive bowel sounds, soft to palpation, non-tender and non-distended Back/Spine normal ROM Extremity normal to inspection, full ROM, normal capillary refill, no clubbing, cyanosis or edema, no calf tenderness and no pedal edema General Extremity: no tenderness to palpation of joints or extremities Skin no rashes or lesions noted General Skin Exam: no breakdown Neuro CN's II-XII intact bilaterally, moves all extremities, no focal motor deficits, no sensory deficits noted and deep tendon reflexes 2+ bilaterally Speech: speech normal Motor Exam: strength 5/5 throughout and general weakness Psych mental status grossly normal, thought process normal and cooperative Appearance: appropriate Assessment & Plan Assessment/Plan (1) Heart failure: (2) Emphysema/COPD: (3) Hypoxia: PLAN: Plan #Acute hypoxic and hypercapnic respiratory failure * Likely due to heart failure. She was admitted with a complaint of productive cough and shortness of breath. Cough was productive of green to yellowish sputum. * Chest x-ray showed possible left lower lobe interstitial infiltrate. * back on BIPAP this morning as she became hypoxic with exertion. * will get ABG. * Also on IV ceftriaxone and azithromycin due to concerns for probable pneumonia. * 2D echo done showed EF of 30% with moderate to severe global hypokinesis. * Cardiology on board, with his symptoms being thought to be due to her new onset A-fib. * Carvedilol decreased to 3.125mg bid today due to hypotension. Also on amiodarone 200mg bid. * Titrate oxygen to maintain saturation above 90%. * #New onset A-fib: * Patient was in A-fib on admission. * Robbi Vasc score is 4. * On coreg 3.125mg bid. Now on Coreg. TSH within normal limits. * #Acute heart failure with reduced ejection fraction: Likely due to new onset A- fib. Management as above. On Lasix and carvedilol. Lasix held due to hypotension, and carvedilol dose decreased. #Pulmonary hypertension: Pulmonary artery pressure is 48 mmHg from the 2D echo. Likely due to the heart failure. Should improve as her heart failure improves #UTI: Urinalysis showed 3+ bacteria. On IV ceftriaxone. urine cultures negative. WIll dc antibiotics. #History of CAD s/p stents: On aspirin and statin #Hypothyroidism: on synthroid. Check TSH./ DVT prophylaxis: on eliquis Charges/Coding Visit Charges Inpatient E&M: 46261 Subs Hosp L2
--- NOTE | 2023-12-10 15:22 | CASEMGMT ---
Addendum entered by Amelia Forman 12/10/23 15:43: Social Work SW spoke w/Jorge w/[facility], they will take pt and will plan to see pt Wednesday. Green sheet placed on chart for DME, HHC and AL. CHERELLE Amaya Original Note: Social Work SW spoke w/pt in room, she confirmed plan is to return to [facility] [place] at discharge. If O2 needed, she would want [employer], as pt states this is the company that [facility] uses. SW spoke w/daughter as well, she confirms discharge plan is for pt to return to [facility]. She is also in agreement w/[employer] for home O2, DME list not needed. We also discussed home health, daughter does think pt would benefit from home PT/OT. Home care list declined as daughter agreeable to whatever agency [facility] uses. [facility] often uses [facility], daughter agreeable to referral to [facility]. Referral made, awaiting call back. Plan: Return to [place], Home O2 through [facility] and HHC through [facility]. Green sheet will be placed on chart. CHERELLE Amaya
[2023-12-10] MEDS: Carvedilol 3.125 MG TABLET PO (20:49)
[2023-12-10] MEDS: Atorvastatin Calcium 20 MG Tablet PO (20:49)
[2023-12-11] VITALS (18 sets, daily range): BP systolic 97–132; BP diastolic 73–97; PULSE 96–122; RESP 19–38; TEMP 36.4–37.2; O2SAT 88–100
[2023-12-11] MEDS: Levothyroxine 75 MCG Tablet PO (06:08)
[2023-12-11 07:50] LABS: Absolute Lymphocyte Count 0.93 X10^3/uL (0.83-4.51); Absolute Neutrophil Count 5.4 X10^3/uL (2.0-7.7); Basophil# 0.03 X10^3/uL; Basophil% 0.4 % (0-1); Eosinophil# 0.05 X10^3/uL; Eosinophils% 0.7 % (0-5); Hematocrit 47.8 % (37-47); Hemoglobin 14.3 g/dL (12.0-15.0); Lymphocyte # 0.93 X10^3/ul (0.83-4.51); Lymphocyte % 13.6 % (19-41); Mean Corp Hgb Conc 29.9 g/dL (32-36); Mean Corpuscular Hgb 30.8 pg (27.0-32.0); Mean Corpuscular Volume 102.8 fL (81-99); Mean Platelet Vol. 9.9 fl (6.2-12.0); Monocyte# 0.38 X10^3/uL; Monocyte% 5.5 % (0-10); NRBC Flagged by Analyzer 0 % (0-5); Neutrophil # 5.41 X10^3/uL (2.7-7.7); Neutrophil % 79.1 % (47-70); Platelet Count 116 K/mm3 (150-450); RBC Distribution Width CV 14.7 % (11.6-14.6); RBC Distribution Width SD 56.2 fl (35.1-43.9); Red Blood Count 4.65 M/mm3 (4.2-5.4); White Blood Count 6.9 K/mm3 (4.4-11.0)
[2023-12-11 08:25] LABS: Anion Gap 3 (5-15); BUN 27 mg/dL (7-18); BUN/Creat Ratio 28.5 RATIO (10-20); Calcium,Total 8.6 mg/dL (8.5-10.1); Chloride 100 mmol/L (98-107); Creatinine, Serum 0.95 mg/dL (0.55-1.02); EST Glomerular Filtration Rate 59 mL/min (>60); Est Glom Filt Rate - Afr Amer 72 mL/min (>60); Estimated Creatinine Clearance 43.04 ml/min; Glucose 146 mg/dL (74-106); Potassium 4.4 mmol/L (3.5-5.1); Sodium Level 143 mmol/L (136-145)
[2023-12-11] MEDS: Amiodarone 200 MG Tablet PO ×2 (10:05→21:23)
[2023-12-11] MEDS: Carvedilol 3.125 MG TABLET PO ×2 (10:05→21:23)
[2023-12-11] MEDS: Furosemide 20 MG Tablet PO (10:05)
[2023-12-11] MEDS: Aspirin E.C. 81 MG Tablet PO (10:05)
[2023-12-11] MEDS: APIXABAN 5 MG TABLET PO ×2 (10:05→21:23)
--- NOTE | 2023-12-11 10:44 | PN_ITS ---
Subjective Subjective Patient seen and examined. She had no active complaints today. She is on 3 L of oxygen. She has been tachycardic and tachypneic. She says she is feeling better. Review of systems is otherwise negative. Objective Data Objective Data Vital Signs: Vital Signs Temp Pulse Resp BP Pulse Ox O2 Del Method O2 Flow Rate 98.0 F 115 H 37 H 113/96 H 96 Nasal Cannula 3 12/11/23 10:03 12/11/23 10:03 12/11/23 10:03 12/11/23 10:03 12/11/23 10:03 12/11/23 10:03 12/11/23 10:03 FiO2 30 12/10/23 13:10 Oxygen Flow Rate (L/min) 3 Oxygen Delivery Method Nasal Cannula Weight: 163 lb 5.8 oz Body Mass Index (BMI) 25.5 Intake & Output: Intake and Output for Last 24 Hours 12/09/23 12/10/23 12/11/23 23:59 23:59 23:59 Intake Total 1180 / 1180 980 / 1240 620 / 620 Output Total 950 / 950 200 / 340 220 / 220 Balance 230 / 230 780 / 900 400 / 400 Lab / Micro Data 12/11/23 07:30 12/11/23 07:30 Labs: Laboratory Results - last 24 hr 12/11/23 07:30: WBC 6.9, RBC 4.65, Hgb 14.3, Hct 47.8 H, MCV 102.8 H, MCH 30.8, MCHC 29.9 L, RDW Std Deviation 56.2 H, RDW Coeff of Claudia 14.7 H, Plt Count 116 L, MPV 9.9, Immature Gran % (Auto) 0.700, Neut % (Auto) 79.1 H, Lymph % (Auto) 13.6 L, [place] % (Auto) 5.5, Eos % (Auto) 0.7, Baso % (Auto) 0.4, Absolute Neuts (auto) 5.4, Absolute Lymphs (auto) 0.93, Nucleated RBC % 0, Sodium 143, Potassium 4.4, Chloride 100, Carbon Dioxide 40.0 H, Anion Gap 3 L, BUN 27 H, Creatinine 0.95, Estim Creat Clear Calc 43.04, Est GFR (MDRD) Af Amer 72, Est GFR (MDRD) Non-Af 59 L, BUN/Creatinine Ratio 28.5 H, Glucose 146 H, Calcium 8.6 Micro: Microbiology 12/08/23 01:41 Urine, Clean Catch Urine Culture - Final Culture exhibits no growth. 12/07/23 19:20 Blood Culture (Wb) - Anticubital Right Blood Culture - Preliminary No growth in 48 hours. 12/08/23 01:41 Urine, Random Legionella Antigen - Final 12/08/23 01:41 Urine, Random Streptococcus pneumoniae Antigen (M - Final 12/08/23 00:15 Mucosa - Nasopharyngeal Respiratory Panel (PCR) - Final 12/07/23 20:24 Mucosa - Nose SARS-CoV-2, Influenza & RSV (PCR) - Final Physical Exam Const alert, oriented x3, no apparent distress and average body habitus Constitutional Narrative: frail General Appearance: cooperative and comfortable HEENT normocephalic, head/scalp atraumatic, hearing grossly normal bilaterally, nasal mucous membranes and turbinates normal, moist oral mucous membranes and oropharynx normal Eyes PERRL, EOMs intact bilaterally and conjunctivae normal Neck full ROM, no lymphadenopathy and supple Lymph Lymphatic: no lymphadenopathy noted and no lymphedema noted Chest inspection of chest normal Resp normal respiratory effort and no use of accessory muscles Resp Narrative: mildly diminished breath sounds bibasally, no wheezes or crackles.on 3L of oxygen Cardio S1 normal heart sound, S2 normal heart sound, no murmurs and peripheral pulses 2+ throughout Cardio Narrative: A-fib, tachycardic Rate: tachycardic GI normal to inspection, nondistended, normoactive bowel sounds, soft to palpation, non-tender and non-distended Back/Spine normal ROM Extremity normal to inspection, full ROM, normal capillary refill, no clubbing, cyanosis or edema, no calf tenderness and no pedal edema General Extremity: no tenderness to palpation of joints or extremities Skin no rashes or lesions noted General Skin Exam: no breakdown Neuro CN's II-XII intact bilaterally, moves all extremities, no focal motor deficits, no sensory deficits noted and deep tendon reflexes 2+ bilaterally Speech: speech normal Motor Exam: strength 5/5 throughout and general weakness Psych mental status grossly normal, thought process normal and cooperative Appearance: appropriate Assessment & Plan Assessment/Plan (1) Heart failure: (2) Emphysema/COPD: (3) Hypoxia: PLAN: Plan #Acute hypoxic and hypercapnic respiratory failure * Likely due to heart failure. She was admitted with a complaint of productive cough and shortness of breath. Cough was productive of green to yellowish sputum. * Chest x-ray showed possible left lower lobe interstitial infiltrate. * on 4L of oxygen, but remains intermittently tachypneic and tachycardic. * 2D echo done showed EF of 30% with moderate to severe global hypokinesis. * Cardiology on board, with his symptoms being thought to be due to her new onset A-fib. * Carvedilol decreased to 3.125mg bid due to hypotension. Also on amiodarone 200mg bid. * Titrate oxygen to maintain saturation above 90%. * will get CXR today. * #New onset A-fib: * Patient was in A-fib on admission. * Robbi Vasc score is 4. * On coreg 3.125mg bid. TSH within normal limits. * HR has been difficult to control and has been dluctuating. * #Acute heart failure with reduced ejection fraction: * Likely due to new onset A-fib. Management as above. * On Lasix and carvedilol. * Lasix held due to hypotension, and carvedilol dose decreased. * She is in cumulative positive balance by 1.958 L. Will give a dose of IV Lasix 40mg x 1 today to help with diuresis. Fluid overload is likely contributing to persistent tachypnea and tachycardia. #Pulmonary hypertension: * Pulmonary artery pressure is 48 mmHg from the 2D echo. * Likely due to the heart failure. * Should improve as her heart failure improves. * This is also likely contributing to her persistent shortness of breath. #Asymptomatic bacteriuria: Urinalysis showed 3+ bacteria. was on IV ceftriaxone. urine cultures negative. Antibiotics dc'd as she had no symptoms of UTI and urine cultures were negative. #History of CAD s/p stents: On aspirin and statin #Hypothyroidism: on synthroid. TSH WNL at 2.74 DVT prophylaxis: on eliquis Disposition: for dc back to [facility] once medically stable. Charges/Coding Visit Charges Inpatient E&M: 65146 Subs Hosp L2
--- NOTE | 2023-12-11 11:13 | RAD_ITS ---
STUDY: X-RAY CHEST REASON FOR EXAM: Female, 88 years old. shortness of breath TECHNIQUE: AP COMPARISON: 12/07/2023. FINDINGS: EKG leads project over the chest. Mild opacities in the lung bases are new. Trace bilateral pleural effusions. There is mild cardiac enlargement. Normal mediastinum and freddy. Normal visualized pulmonary arteries. There is atherosclerotic calcification of the aortic arch with tortuosity. No acute bony process. There is no demonstrated abnormality of the visualized soft tissue structures of the upper abdomen. RAD/Chest 1 View (Portable) IMPRESSION: Unfavorable change. Bibasilar opacities and trace effusions are new. Electronically Signed: Angel Luis Koenig MD ([facility]) at 12:41 EDT ,
[2023-12-11] MEDS: Furosemide 40 MG/4 ML Vial IV ×2 (11:30→17:02)
--- NOTE | 2023-12-11 11:47 | CASEMGMT ---
Social Work PT/OT spoke w/CM, with concerns regarding pt returning to the assisted living as pt is needing more assist with PT/OT. SW reached out to the physician, it is anticipated pt will be here through the weekend. SW called daughter, message left to call SW back to review discharge plan again. Pt having some confusion today. SW will continue to follow. CHERELLE Amaya
--- NOTE | 2023-12-11 20:42 | CPS ---
Patient refused PAP therapy for the night. On 3L 91% on CPOX.
[2023-12-11] MEDS: Atorvastatin Calcium 20 MG Tablet PO (21:23)
[2023-12-12] VITALS (15 sets, daily range): BP systolic 105–119; BP diastolic 69–95; PULSE 13–110; RESP 12–102; TEMP 35.7–36.6; O2SAT 87–99
[2023-12-12 04:28] LABS: Absolute Lymphocyte Count 0.99 X10^3/uL (0.83-4.51); Absolute Neutrophil Count 5.9 X10^3/uL (2.0-7.7); Basophil# 0.03 X10^3/uL; Basophil% 0.4 % (0-1); Eosinophil# 0.07 X10^3/uL; Eosinophils% 0.9 % (0-5); Hemoglobin 14.6 g/dL (12.0-15.0); Lymphocyte # 0.99 X10^3/ul (0.83-4.51); Lymphocyte % 12.8 % (19-41); Mean Corp Hgb Conc 30.4 g/dL (32-36); Mean Corpuscular Hgb 31.3 pg (27.0-32.0); Mean Platelet Vol. 9.5 fl (6.2-12.0); Monocyte# 0.67 X10^3/uL; Monocyte% 8.7 % (0-10); NRBC Flagged by Analyzer 0 % (0-5); Neutrophil # 5.92 X10^3/uL (2.7-7.7); Neutrophil % 76.8 % (47-70); Platelet Count 117 K/mm3 (150-450); RBC Distribution Width CV 14.7 % (11.6-14.6); Red Blood Count 4.66 M/mm3 (4.2-5.4); White Blood Count 7.7 K/mm3 (4.4-11.0)
[2023-12-12 05:12] LABS: BUN 28 mg/dL (7-18); BUN/Creat Ratio 26.7 RATIO (10-20); Calcium,Total 8.8 mg/dL (8.5-10.1); Chloride 92 mmol/L (98-107); Creatinine, Serum 1.05 mg/dL (0.55-1.02); EST Glomerular Filtration Rate 53 mL/min (>60); Est Glom Filt Rate - Afr Amer 64 mL/min (>60); Estimated Creatinine Clearance 38.94 ml/min; Glucose 135 mg/dL (74-106); Potassium 3.9 mmol/L (3.5-5.1); Sodium Level 141 mmol/L (136-145)
[2023-12-12 05:14] LABS: Carbon Dioxide > 45.0 mmol/L (21.0-32.0)
[2023-12-12 05:56] LABS: Allen Test Positive; Base Excess 23 mmol/L (-2 to +2); Bicarbonate 48.5 mmol/L (22-26); Blood Gas Specimen Type ART; Mode Not entered; O2 Delivery Device BiPAP; PEEP 8; PO2 77 mmHG (75-100); RR 12; SITE R Radial; SO2 94 % (95-99); Total Carbon Dioxide > 50 mmol/L; pH 7.37 (7.35-7.45)
--- NOTE | 2023-12-12 05:59 | PCM.HOSP.N ---
Hospitalist Note Notified by nursing staff that patient appeared more lethargic this morning, was placed on BiPAP. ABG showed pH 7.36, pCO2 84, pO2 77, bicarb 48. BMP drawn this morning also showed bicarb greater than 45, up from 40 from previous days likely due to IV Lasix administration. Will give dose of IV Diamox and maintain on BiPAP for now, but should be fine to transition back to nasal cannula soon.
--- NOTE | 2023-12-12 06:04 | CPS ---
Critical CO2 value, Dr. Nichols aware.
[2023-12-12] MEDS: AcetaZOLAMIDE 500 MG/10 ML Vial 250 MG IV (06:24)
[2023-12-12] MEDS: 0.9% Saline Lock 10 ML Syringe IV (06:25)
[2023-12-12] MEDS: Furosemide 40 MG/4 ML Vial IV ×2 (08:27→17:46)
[2023-12-12] MEDS: Carvedilol 3.125 MG TABLET PO ×2 (08:27→22:01)
[2023-12-12] MEDS: Aspirin E.C. 81 MG Tablet PO (08:27)
[2023-12-12] MEDS: Amiodarone 200 MG Tablet PO ×2 (08:27→22:01)
[2023-12-12] MEDS: APIXABAN 5 MG TABLET PO ×2 (08:28→22:01)
[2023-12-12] MEDS: Ondansetron 4 MG/2 ML Vial IV (08:40)
[2023-12-12 09:26] LABS: Allen Test Positive; Base Excess 21 mmol/L (-2 to +2); Bicarbonate 47.3 mmol/L (22-26); Blood Gas Specimen Type ART; Mode Not entered; O2 Delivery Device Cannula; PO2 129 mmHG (75-100); SITE L Radial; SO2 98 % (95-99); Total Carbon Dioxide > 50 mmol/L; pCO2 93.1 mmHg (35-45); pH 7.31 (7.35-7.45)
--- NOTE | 2023-12-12 09:49 | CPS ---
Critical values verified times two. Hand delivered results to nurse charge rn. Forwarded results to physician.
--- NOTE | 2023-12-12 09:52 | PN_ITS ---
Subjective Subjective Patient seen and examined today. She had been placed back on BIPAP earlier today due to increased lethargy and shortness of breath. ABG done earlier this morning showed that her pCO2 had gone back up to 82. Her bicarb her BMP at this morning was also more than 45. She was given a dose of acetazolamide 5 pathology secretary. She was off BiPAP at time I reviewed her. Again patient told me that she wanted to check out. When asked what she meant by checking out she said she wanted to . I reminded her that we had had this conversation a couple of days prior and I had mentioned consulting hospice and she had refused. Patient says she did recall that conversation and said at that time she had wanted to fight but now she felt like she was not getting better and so just wanted to . She denied any chest pain, cough, palpitations, dizziness, nausea or vomiting or any other symptoms. Her heart rate had improved and was around 99 at time I reviewed her. She had gotten her Coreg and amiodarone. Objective Data Objective Data Vital Signs: Vital Signs Temp Pulse Resp BP Pulse Ox O2 Del Method O2 Flow Rate 96.6 F L 99 19 H 119/77 96 Nasal Cannula 2 12/12/23 08:04 12/12/23 08:04 12/12/23 08:04 12/12/23 08:04 12/12/23 08:04 12/12/23 08:20 12/12/23 08:20 FiO2 30 12/12/23 08:04 Oxygen Flow Rate (L/min) 2 Oxygen Delivery Method Nasal Cannula Weight: 163 lb 5.8 oz Body Mass Index (BMI) 25.5 Intake & Output: Intake and Output for Last 24 Hours 12/10/23 12/11/23 12/12/23 23:59 23:59 23:59 Intake Total 980 / 1240 620 / 620 Output Total 200 / 340 420 / 920 700 / 700 Balance 780 / 900 200 / -300 -700 / -700 Lab / Micro Data 12/12/23 04:10 12/12/23 04:10 Labs: Laboratory Results - last 24 hr 12/12/23 04:10: WBC 7.7, RBC 4.66, Hgb 14.6, Hct 48.0 H, MCV 103.0 H, MCH 31.3, MCHC 30.4 L, RDW Std Deviation 56.0 H, RDW Coeff of Claudia 14.7 H, Plt Count 117 L, MPV 9.5, Immature Gran % (Auto) 0.400, Neut % (Auto) 76.8 H, Lymph % (Auto) 12.8 L, [place] % (Auto) 8.7, Eos % (Auto) 0.9, Baso % (Auto) 0.4, Absolute Neuts (auto) 5.9, Absolute Lymphs (auto) 0.99, Nucleated RBC % 0, Sodium 141, Potassium 3.9, Chloride 92 L, Carbon Dioxide > 45.0 H*, Anion Gap TNP, BUN 28 H, Creatinine 1.05 H, Estim Creat Clear Calc 38.94, Est GFR (MDRD) Af Amer 64, Est GFR (MDRD) Non-Af 53 L, BUN/Creatinine Ratio 26.7 H, Glucose 135 H, Calcium 8.8 Micro: Microbiology 12/08/23 01:41 Urine, Clean Catch Urine Culture - Final Culture exhibits no growth. 12/07/23 19:20 Blood Culture (Wb) - Anticubital Right Blood Culture - Preliminary No growth in 48 hours. 12/08/23 01:41 Urine, Random Legionella Antigen - Final 12/08/23 01:41 Urine, Random Streptococcus pneumoniae Antigen (M - Final 12/08/23 00:15 Mucosa - Nasopharyngeal Respiratory Panel (PCR) - Final 12/07/23 20:24 Mucosa - Nose SARS-CoV-2, Influenza & RSV (PCR) - Final ABG Data ABG results: ABG 12/12/23 12/12/23 05:53 09:21 Specimen Type ART ART Sample Site R Radial L Radial pH 7.37 7.31 L Bicarbonate Actual 48.5 H 47.3 H Total CO2 > 50 > 50 Base Excess 23 H 21 H O2 Saturation 94 L 98 O2 % 30.0 2.0 ABG pCO2 84.0 H* 93.1 H* ABG pO2 77 129 H Rehan Test Positive Positive Respiration Rate 12 O2 Delivery Device BiPAP Cannula Vent Mode Not entered Not entered POC PEEP 8 Crit Call To/Read Back Yes Yes Radiography Diagnostic Testing: Radiology Impression Chest X-Ray 12/11/23 11:13 IMPRESSION: Unfavorable change. Bibasilar opacities and trace effusions are new. Electronically Signed: Angel Luis Koenig MD ([facility]) at 12:41 EDT , Physical Exam Const alert and oriented x3 Constitutional Narrative: frail, lethargic Orientation / Consciousness: lethargic HEENT normocephalic, head/scalp atraumatic, hearing grossly normal bilaterally, nasal mucous membranes and turbinates normal, moist oral mucous membranes and oropharynx normal Eyes PERRL, EOMs intact bilaterally and conjunctivae normal Neck full ROM, no lymphadenopathy and supple Lymph Lymphatic: no lymphadenopathy noted and no lymphedema noted Chest inspection of chest normal Resp normal respiratory effort and no use of accessory muscles Resp Narrative: mildly diminished breath sounds bibasally, no wheezes or crackles.on 3L of oxygen at time of review, but had to be put back on BIPAP. Cardio regular rate, regular rhythm, S1 normal heart sound, S2 normal heart sound, no murmurs and peripheral pulses 2+ throughout Cardio Narrative: afib, rate controlled GI normal to inspection, nondistended, normoactive bowel sounds, soft to palpation, non-tender and non-distended Back/Spine normal ROM Extremity normal to inspection, full ROM, normal capillary refill, no clubbing, cyanosis or edema, no calf tenderness and no pedal edema General Extremity: no tenderness to palpation of joints or extremities Skin no rashes or lesions noted General Skin Exam: no breakdown Neuro CN's II-XII intact bilaterally and moves all extremities Speech: speech normal Motor Exam: general weakness Psych Psych Narrative: lethargic Assessment & Plan Assessment/Plan (1) Heart failure: (2) Emphysema/COPD: (3) Hypoxia: PLAN: Plan #Acute hypoxic and hypercapnic respiratory failure * Likely due to heart failure. She was admitted with a complaint of productive cough and shortness of breath. Cough was productive of green to yellowish sputum. * Chest x-ray showed possible left lower lobe interstitial infiltrate. * Patient's ABG this morning showed that her pCO2 had gone up to 84. pO2 was 77 and pH was 7.37. Bicarb had gone up to 48. * Patient was placed on BiPAP. Her oxygen requirements on BIPAP increased to FiO2 of 40% from 30%. * repeat ABG showed pCO2 is up to 92. Patient is increasingly more lethargic. * to keep patient on BIPAP. Patient stated clearly on admission and to me when I took over her care that she does not wasnt CPR or intubation and wants to be DNRCCA no intubation * on carvedilol 3.125mg bid and amiodarone 200mg bid. * 2D echo done showed EF of 30% with moderate to severe global hypokinesis. * Cardiology on board * Titrate oxygen to maintain saturation above 90%. * #New onset A-fib: * Patient was in A-fib on admission. * Robbi Vasc score is 4. * On coreg 3.125mg bid. TSH within normal limits. * HR control is improving * #Acute heart failure with reduced ejection fraction: * Likely due to new onset A-fib. Management as above. * On Lasix and carvedilol. * on IV lasix as she is still in positive fluid balance by 1.058L. * #Pulmonary hypertension: * Pulmonary artery pressure is 48 mmHg from the 2D echo. * Likely due to the heart failure. * Should improve as her heart failure improves. * This is also likely contributing to her persistent shortness of breath. #Asymptomatic bacteriuria: Urinalysis showed 3+ bacteria. was on IV ceftriaxone. urine cultures negative. Antibiotics dc'd as she had no symptoms of UTI and urine cultures were negative. #History of CAD s/p stents: On aspirin and statin #Hypothyroidism: on synthroid. TSH WNL at 2.74 DVT prophylaxis: on eliquis PRognosis: poor * I tried reaching patient's daughter Leonie Mena ([phone]) and to update her about patient's status. I was unable to reach Leonie so I called patient's niece Yamileth Alcala ([phone]) who gave me patient's son Prabhu's number. Spoke to patient's son Prabhu ([phone]). Updated Prabhu about patient's current state and counseled him that patient was very lethargic even on BiPAP and was possibly heading into respiratory arrest if her CO2 kept on rising. I explained to him that patient is listed CODE STATUS is DNR CCA no intubation. He said when patient was down visiting him in [place], she had had a DO NOT RESUSCITATE CODE STATUS bed to and so was in agreement with respecting her wishes to be DNR CCA no intubation. He expressed understanding of her prognosis and said he will reach out to his sister. * 3pm Patient's daughter plan to get in with her niece Yamileth came to the hospital and request to speak to me. Patient's daughter's was also at the bedside. They wanted to know the next plan of care. I counseled them that in light of them wanting to respect patient's wishes to be DNR CCA, the options would be to continue current treatment knowing that patient was still BiPAP dependent and so will be difficult to discharge her back to her assisted living facility if she remained BiPAP dependent. The next option would be to consult hospice to see if they could provide hospice services in longterm facility or assisted living. Patient's daughter said her brother is coming in from [place] and will get in here this evening. They would like to speak to hospice but would want the meeting to be tomorrow so that her brother will be present for them all to be able to make a decision. Hospice consulted with a goal of meeting with family tomorrow. Time spent on clarifying CODE STATUS and updating family about plan and goals of care: 30 minutes. Charges/Coding Visit Charges Inpatient E&M: 37481 Subs Hosp L3 Procedures Hospitalists Procedures: 56804 Advncd Care Plan 30 Min
--- NOTE | 2023-12-12 10:35 | NURSING ---
This RN spoke with Dr. Devries, who stated that she had spoke with patient's son Prabhu and that he wanted to honor his mother's wishes and not intubated. Prabhu was made aware of pt's condition by Dr. Devries. Prabhu's contact number is [phone]. If unable to reach, his Brittanie can be reached at [phone]. Micha QUAN
--- NOTE | 2023-12-12 10:49 | CPS ---
Critical value verified times two. Hand delivered results to charge hand. RN to text results to Physician.
[2023-12-12 10:53] LABS: Allen Test Positive; Base Excess 25 mmol/L (-2 to +2); Bicarbonate 50.3 mmol/L (22-26); Blood Gas Specimen Type ART; Mode Not entered; O2 Delivery Device Not entered; PO2 111 mmHG (75-100); SITE L Radial; SO2 98 % (95-99); Total Carbon Dioxide > 50 mmol/L; pCO2 92.4 mmHg (35-45); pH 7.34 (7.35-7.45)
--- NOTE | 2023-12-12 12:36 | PCMCONS.TICU ---
HPI Consult Data Date of Consult: 12/12/23 HPI Narrative Reason for Consultation: Hypercapnea HPI Narrative: MILAGRO DELGADO, is a 88 F who presents with worsening blood gases and decreased mentation. The history of her presentation documented well in chart is reviewed. She is awake enough to entertain an interview but with significant psychomotor retardation. She denies SOB, states she has COPD though remarkably has never been prescribed inhaled therapies nor has she seen a steam distribution supervisor. Apparently has not been on home oxygen at any time previously. No family in room to corroborate the story. [facility] Medical History Hypothyroidism Essential (primary) hypertension COPD (chronic obstructive pulmonary disease) Rosacea Coronary artery disease Home Medications ?Medication ?Instructions ?Recorded ?Last Taken ?Type acetaminophen 325 mg tablet (Pain 650 mg PO Q4H PRN pain, fever 12/07/23 Unknown History Relief (acetaminophen)) aspirin 81 mg tablet,delayed 81 mg PO DAILY CAD 12/07/23 Unknown History release (Adult Low Dose Aspirin) atenolol 50 mg tablet 50 mg PO DAILY HTN 12/07/23 Unknown History hydrochlorothiazide 12.5 mg capsule 12.5 mg PO DAILY HTN 12/07/23 Unknown History levothyroxine 50 mcg tablet 50 mcg PO .SUMOWEFRI hypothyroidism 12/07/23 Unknown History levothyroxine 75 mcg tablet 75 mcg PO TUTHSA hypothyroidism 12/07/23 Unknown History loperamide 2 mg capsule 2 mg PO Q6H PRN loose stool 12/07/23 Unknown History (Anti-Diarrheal (loperamide)) magnesium hydroxide 400 mg/5 mL 400 mg PO DAILY PRN constipation 12/07/23 Unknown History oral suspension (Milk of Magnesia) simvastatin 40 mg tablet 40 mg PO QHS 12/07/23 Unknown History Allergy/AdvReac Type Severity Reaction Status Date / Time adhesive tape AdvReac Intermediate Rash Verified 12/07/23 19:41 Surgical History Hx of heart artery stent Social History Smoking Status: Former smoker ROS Review of Systems ROS Unobtainable: due to mental status Objective Data Objective Data Vital Signs: Vital Signs Last response Temperature 35.9 C L 12/12/23 08:04 Temperature Source Temporal 12/12/23 08:04 Pulse Rate 99 12/12/23 08:04 Pulse Strength Weak (1+) 12/12/23 10:00 Respiratory Rate 19 H 12/12/23 08:04 Respiratory Effort Normal, Non-Labored 12/12/23 08:20 Respiratory Depth Normal 12/12/23 08:20 Respiratory Pattern Normal 12/12/23 08:20 Blood Pressure 119/77 12/12/23 08:04 Blood Pressure Mean 91 12/12/23 08:04 Blood Pressure Source Monitor 12/12/23 08:04 Blood Pressure Position Semi-Fowlers 12/12/23 08:04 Blood Pressure Location Right Arm 12/12/23 08:04 Pulse Ox 99 12/12/23 11:40 Oxygen Delivery Method Bi-pap 12/12/23 09:58 Oxygen Flow Rate (L/min) 2 12/12/23 08:20 Fraction of Inspired Oxygen (FIO2) 40 12/12/23 09:58 I&O: I&O Last 24 Hours 12/11/23 12/12/23 12/12/23 23:59 11:59 23:59 Output Total 200 / 920 700 / 700 Balance -200 / -300 -700 / -700 I&O: Total Stay 12/07/23 19:01 thru 12/12/23 06:00 Intake Total 4278.25 Output Total 3220 Balance 1058.25 Current Meds Ordered / Administered: Current meds ordered / Administered Generic Name Dose Route Start Last Admin Trade Name Markieq PRN Reason Stop Dose Admin Acetaminophen 650 mg 12/07/23 22:21 Acetaminophen 325 Mg Tablet PO Q6H PRN PRN Pain 1-10 Or Fever>100.7 Amiodarone HCl 200 mg 12/09/23 14:30 12/12/23 08:27 Amiodarone 200 Mg Tablet PO 200 mg BID CHYNA Administration Apixaban 5 mg 12/07/23 22:35 12/12/23 08:28 Apixaban 5 Mg Tablet PO 5 mg BID CHYNA Administration Aspirin 81 mg 12/08/23 08:00 12/12/23 08:27 Aspirin E.C. 81 Mg Tablet PO 81 mg BREAKFAST CHYNA Administration Atorvastatin Calcium 20 mg 12/07/23 22:21 12/11/23 21:23 Atorvastatin Calcium 20 Mg Tablet PO 20 mg QHS CHYNA Administration Carvedilol 3.125 mg 12/10/23 10:00 12/12/23 08:27 Carvedilol 3.125 Mg Tablet PO 3.125 mg BID CHYNA Administration Protocol Furosemide 40 mg 12/12/23 10:00 Furosemide 40 Mg Tablet PO DAILY [facility] Protocol Furosemide 40 mg 12/12/23 10:00 12/12/23 08:27 Furosemide 40 Mg/4 Ml Vial IV 40 mg BIDLX [facility] Administration Protocol Sodium Chloride 250 mls @ 15 mls/hr 12/07/23 22:35 IV .[id number] PRN Additional IVPB Infusion Sodium Chloride 250 mls @ 15 mls/hr 12/07/23 22:35 IV .[id number] PRN Saline Flush Levothyroxine Sodium 75 mcg 12/09/23 06:00 12/11/23 06:08 Levothyroxine 75 Mcg Tablet PO 75 mcg TuThSa@0600 [facility] Administration Levothyroxine Sodium 50 mcg 12/08/23 06:00 12/12/23 05:40 Levothyroxine 50 Mcg Tablet PO Not Given [id number]@0600 [facility] Loperamide HCl 2 mg 12/08/23 00:03 Loperamide 2 Mg Capsule PO Q6H PRN PRN loose stool Magnesium Hydroxide 30 ml 12/08/23 00:03 Magnesium Hydroxide 30 Ml Udc PO DAILY PRN constipation Melatonin 3 mg 12/07/23 22:21 Melatonin 3 Mg Tablet PO QHS PRN PRN INSOMNIA Ondansetron HCl 4 mg 12/07/23 22:21 12/12/23 08:40 Ondansetron 4 Mg/2 Ml Vial IV 4 mg Q8H PRN PRN Administration NAUSEA/VOMITING Sodium Chloride 10 - 40 ml 12/07/23 22:35 12/12/23 06:25 0.9% Saline Lock 10 Ml Syringe IV 10 ml UD PRN Administration SALINE FLUSH Physical Exam Const Constitutional Narrative: arousable General Appearance: comfortable and well kempt Orientation / Consciousness: lethargic Exam Limitations: altered mental status HEENT normocephalic and head/scalp atraumatic External Ear: external ears normal Eyes PERRL, EOMs intact bilaterally and conjunctivae normal Neck full ROM General: trachea midline Resp normal respiratory effort and no use of accessory muscles Effort and Inspection: able to speak in complete sentences Lab / Micro Data Attestation: I reviewed the patient's lab results. 12/12/23 04:10 12/12/23 04:10 Labs: Laboratory Results - last 24 hr 12/12/23 04:10: WBC 7.7, RBC 4.66, Hgb 14.6, Hct 48.0 H, MCV 103.0 H, MCH 31.3, MCHC 30.4 L, RDW Std Deviation 56.0 H, RDW Coeff of Claudia 14.7 H, Plt Count 117 L, MPV 9.5, Immature Gran % (Auto) 0.400, Neut % (Auto) 76.8 H, Lymph % (Auto) 12.8 L, [place] % (Auto) 8.7, Eos % (Auto) 0.9, Baso % (Auto) 0.4, Absolute Neuts (auto) 5.9, Absolute Lymphs (auto) 0.99, Nucleated RBC % 0, Sodium 141, Potassium 3.9, Chloride 92 L, Carbon Dioxide > 45.0 H*, Anion Gap TNP, BUN 28 H, Creatinine 1.05 H, Estim Creat Clear Calc 38.94, Est GFR (MDRD) Af Amer 64, Est GFR (MDRD) Non-Af 53 L, BUN/Creatinine Ratio 26.7 H, Glucose 135 H, Calcium 8.8 ABG Data ABG results: ABG 12/12/23 12/12/23 12/12/23 05:53 09:21 10:49 Specimen Type ART ART ART Sample Site R Radial L Radial L Radial pH 7.37 7.31 L 7.34 L Bicarbonate Actual 48.5 H 47.3 H 50.3 H Total CO2 > 50 > 50 > 50 Base Excess 23 H 21 H 25 H O2 Saturation 94 L 98 98 O2 % 30.0 2.0 40.0 ABG pCO2 84.0 H* 93.1 H* 92.4 H* ABG pO2 77 129 H 111 H Rehan Test Positive Positive Positive Respiration Rate 12 O2 Delivery Device BiPAP Cannula Not entered Vent Mode Not entered Not entered Not entered POC PEEP 8 Crit Call To/Read Back Yes Yes Yes Attestation: I personally reviewed and interpreted this ABG as follows: Imaging Radiology Impression Chest X-Ray 12/11/23 11:13 IMPRESSION: Unfavorable change. Bibasilar opacities and trace effusions are new. Electronically Signed: Angel Luis Koenig MD ([place]) at 12:41 EDT , Assessment and Plan . 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 Blood gases reviewed and will start NIV 2. Agree with DNI status established by hospitalist and family 3. Bronchodilators are appropriate 4. follow blood gases 5. watch for concomitant metabolic alk from diuresis as mentioned by others Critical Care Time: 60 minutes The entirety of this encounter was done via Telemedicine
[2023-12-12] MEDS: Ipratropium/Albuterol Sulfate 3 ML AMPUL.NEB INHALATION (19:35)
--- NOTE | 2023-12-12 20:02 | CPS ---
Gave patient a break from PAP therapy after wearing it the majority of the day, RN aware. On 2L 93% on CPOX. Patient awake and responding appropriately at this time. Will place patient back on PAP therapy for night time use. Patient agreeable.
[2023-12-12] MEDS: Atorvastatin Calcium 20 MG Tablet PO (22:01)
[2023-12-13] VITALS (14 sets, daily range): BP systolic 95–123; BP diastolic 56–88; PULSE 92–117; RESP 12–24; TEMP 35.9–36.6; O2SAT 92–100
[2023-12-13 06:13] LABS: Absolute Lymphocyte Count 0.99 X10^3/uL (0.83-4.51); Basophil# 0.03 X10^3/uL; Basophil% 0.4 % (0-1); Eosinophil# 0.06 X10^3/uL; Eosinophils% 0.8 % (0-5); Hemoglobin 14.8 g/dL (12.0-15.0); Lymphocyte # 0.99 X10^3/ul (0.83-4.51); Lymphocyte % 12.6 % (19-41); Mean Corp Hgb Conc 30.8 g/dL (32-36); Mean Corpuscular Hgb 30.9 pg (27.0-32.0); Mean Corpuscular Volume 100.2 fL (81-99); Mean Platelet Vol. 10.2 fl (6.2-12.0); Monocyte% 8.9 % (0-10); NRBC Flagged by Analyzer 0 % (0-5); Neutrophil # 6.02 X10^3/uL (2.7-7.7); Neutrophil % 76.9 % (47-70); Platelet Count 108 K/mm3 (150-450); RBC Distribution Width CV 14.2 % (11.6-14.6); RBC Distribution Width SD 53.1 fl (35.1-43.9); Red Blood Count 4.79 M/mm3 (4.2-5.4); White Blood Count 7.8 K/mm3 (4.4-11.0)
[2023-12-13 06:31] LABS: Anion Gap 2 (5-15); BUN 28 mg/dL (7-18); BUN/Creat Ratio 24.3 RATIO (10-20); Calcium,Total 8.3 mg/dL (8.5-10.1); Chloride 91 mmol/L (98-107); Creatinine, Serum 1.15 mg/dL (0.55-1.02); EST Glomerular Filtration Rate 47 mL/min (>60); Est Glom Filt Rate - Afr Amer 57 mL/min (>60); Estimated Creatinine Clearance 35.55 ml/min; Glucose 112 mg/dL (74-106); Potassium 3.9 mmol/L (3.5-5.1); Sodium Level 137 mmol/L (136-145)
[2023-12-13] MEDS: Ipratropium/Albuterol Sulfate 3 ML AMPUL.NEB INHALATION ×3 (07:16→19:25)
--- NOTE | 2023-12-13 09:01 | PCM.PN.INT ---
Assessment & Plan Assessment/Plan (1) Emphysema/COPD: PLAN: Plan RECOMMENDATIONS: 1. Continue ongoing attempts at diuresis, pending goals of care discussion this afternoon with hospice care services. 2. Breaks from BiPAP therapy as tolerated. 3. Wean oxygen to maintain saturations at or above 90%. 4. If hospice care services is not elected, will need to obtain follow-up ABG and monitor acid-base status closely, the patient may require additional acetazolamide. IMPRESSIONS: 1. Acute combined respiratory failure Presumed multifactorial in etiology with underlying heart failure and possible obstructive lung disease contributing. The patient has been struggling with hypercarbic encephalopathy, which is likely the consequence of ongoing diuresis and subsequent contraction alkalosis leading to CO2 retention. I do agree that the patient likely has an underlying component of COPD, of unclear severity, which is also contributing to her current clinical situation. At the present time, the patient and family are considering comfort care measures and her planning to meet with hospice care services this afternoon. For now, it is reasonable to continue BiPAP with breaks and continue to wean supplemental oxygen for saturations greater than 90%. If the patient does not elect to pursue comfort care measures, I would recommend obtaining a follow-up ABG, as the patient will likely require additional acetazolamide, depending on her clinical course. Continue bronchodilators as ordered. 2. Atrial fibrillation Continue beta-jayla regimen as ordered. 3. Advanced age/history of coronary artery disease status post PCI/hypothyroidism Complicates care, management, recovery and prognosis. Continue supportive measures as noted above. This note was generated with [employer] dictation software. It may contain incorrect words, spelling, and punctuation that were not noted in checking the note before signing. Subjective Subjective The patient was seen and examined at the bedside this morning. Events from the last 24 hours have been reviewed. The patient is currently afebrile, hemodynamically stable and maintaining appropriate oxygen saturations on BiPAP with an FiO2 requirement of 40%. Nursing staff did report that the patient was able to take a break overnight from BiPAP. She continues to report feeling fatigued and short of breath, despite her PAP support. She remains on scheduled diuretics. Family is present at the bedside. They confirmed their intentions to meet with hospice care services this afternoon at 1 PM. Objective Data Objective Data The patient's most recent lab work, culture data and imaging studies have all been personally reviewed. Surface echocardiogram demonstrated an ejection fraction of 30% with moderate to severe global hypokinesis of the LV. Pulmonary artery systolic pressure was estimated to be 48 mmHg. Strep and urine Legionella antigens were negative. Respiratory viral panel was negative. Blood and urine cultures have not demonstrated any growth to date. Vital Signs: Vital Signs Temp Pulse Resp BP Pulse Ox O2 Del Method O2 Flow Rate 97.8 F 102 H 22 H 123/88 H 97 Bi-pap 2 12/13/23 08:00 12/13/23 08:00 12/13/23 08:00 12/13/23 08:00 12/13/23 08:00 12/13/23 08:00 12/12/23 22:00 FiO2 40 12/13/23 08:00 Oxygen Flow Rate (L/min) 2 Oxygen Delivery Method Bi-pap Weight: 163 lb 5.8 oz Body Mass Index (BMI) 25.5 Intake & Output: Intake and Output for Last 24 Hours 12/11/23 12/12/23 12/13/23 23:59 23:59 23:59 Intake Total 620 / 620 480 / 480 Output Total 420 / 920 900 / 900 Balance 200 / -300 -900 / -420 480 / 480 Lab / Micro Data Attestation: I reviewed the patient's lab results. 12/13/23 05:51 12/13/23 05:51 Labs: Laboratory Results - last 24 hr 12/13/23 05:51: WBC 7.8, RBC 4.79, Hgb 14.8, Hct 48.0 H, MCV 100.2 H, MCH 30.9, MCHC 30.8 L, RDW Std Deviation 53.1 H, RDW Coeff of Claudia 14.2, Plt Count 108 L, MPV 10.2, Immature Gran % (Auto) 0.400, Neut % (Auto) 76.9 H, Lymph % (Auto) 12.6 L, [place] % (Auto) 8.9, Eos % (Auto) 0.8, Baso % (Auto) 0.4, Absolute Neuts (auto) 6.0, Absolute Lymphs (auto) 0.99, Nucleated RBC % 0, Sodium 137, Potassium 3.9, Chloride 91 L, Carbon Dioxide 44.0 H, Anion Gap 2 L, BUN 28 H, Creatinine 1.15 H, Estim Creat Clear Calc 35.55, Est GFR (MDRD) Af Amer 57 L, Est GFR (MDRD) Non-Af 47 L, BUN/Creatinine Ratio 24.3 H, Glucose 112 H, Calcium 8.3 L Micro: Microbiology 12/07/23 19:20 Blood Culture (Wb) - Anticubital Right Blood Culture - Final No growth in 5 days. 12/08/23 01:41 Urine, Clean Catch Urine Culture - Final Culture exhibits no growth. 12/08/23 01:41 Urine, Random Legionella Antigen - Final 12/08/23 01:41 Urine, Random Streptococcus pneumoniae Antigen (M - Final 12/08/23 00:15 Mucosa - Nasopharyngeal Respiratory Panel (PCR) - Final 12/07/23 20:24 Mucosa - Nose SARS-CoV-2, Influenza & RSV (PCR) - Final ABG Data ABG results: ABG 12/12/23 12/12/23 09:21 10:49 Specimen Type ART ART Sample Site L Radial L Radial pH 7.31 L 7.34 L Bicarbonate Actual 47.3 H 50.3 H Total CO2 > 50 > 50 Base Excess 21 H 25 H O2 Saturation 98 98 O2 % 2.0 40.0 ABG pCO2 93.1 H* 92.4 H* ABG pO2 129 H 111 H Rehan Test Positive Positive O2 Delivery Device Cannula Not entered Vent Mode Not entered Not entered Crit Call To/Read Back Yes Yes Physical Exam Const alert and no apparent distress Constitutional Narrative: Fatigued in appearance with BiPAP in place. Family is present at the bedside. General Appearance: cooperative HEENT normocephalic and head/scalp atraumatic Eyes PERRL and EOMs intact bilaterally Neck supple General: trachea midline Chest inspection of chest normal Resp normal respiratory effort Auscultation: diminished lung sounds Cardio regular rate and regular rhythm GI normal to inspection, nondistended, normoactive bowel sounds Extremity no clubbing, cyanosis or edema Skin no rashes or lesions noted Neuro CN's II-XII intact bilaterally and no focal motor deficits Psych Mood & Affect: flat affect Charges/Coding Visit Charges Inpatient E&M: 23534 Subs Hosp L2
--- NOTE | 2023-12-13 09:06 | CASEMGMT ---
Addendum entered by Amelia Forman 12/13/23 09:13: Social Work SW called [facility], spoke w/RN Gisela, let her know pt is meeting w/hospice today at 1pm. CHERELLE Amaya Original Note: Social Work SW spoke w/cupola charger and physician, hospice was consulted and to be here at 1pm to meet w/family. CHERELLE Amaya
--- NOTE | 2023-12-13 09:18 | PCM.PROGNOTE ---
Subjective Subjective Patient seen and examined. Her son Prabhu was by her bedside. She remains on BIPAP. She remains tachypneic and tachycardic. She is quite frail and weak. Review of systems is otherwise negative. Objective Data Objective Data Vital Signs: Vital Signs Temp Pulse Resp BP Pulse Ox O2 Del Method O2 Flow Rate 97.8 F 102 H 22 H 123/88 H 97 Bi-pap 2 12/13/23 08:00 12/13/23 08:00 12/13/23 08:00 12/13/23 08:00 12/13/23 08:00 12/13/23 08:00 12/12/23 22:00 FiO2 40 12/13/23 08:00 Oxygen Flow Rate (L/min) 2 Oxygen Delivery Method Bi-pap Weight: 163 lb 5.8 oz Body Mass Index (BMI) 25.5 Intake & Output: Intake and Output for Last 24 Hours 12/11/23 12/12/23 12/13/23 23:59 23:59 23:59 Intake Total 620 / 620 480 / 480 Output Total 420 / 920 900 / 900 Balance 200 / -300 -900 / -420 480 / 480 Lab / Micro Data 12/13/23 05:51 12/13/23 05:51 Labs: Laboratory Results - last 24 hr 12/13/23 05:51: WBC 7.8, RBC 4.79, Hgb 14.8, Hct 48.0 H, MCV 100.2 H, MCH 30.9, MCHC 30.8 L, RDW Std Deviation 53.1 H, RDW Coeff of Claudia 14.2, Plt Count 108 L, MPV 10.2, Immature Gran % (Auto) 0.400, Neut % (Auto) 76.9 H, Lymph % (Auto) 12.6 L, [place] % (Auto) 8.9, Eos % (Auto) 0.8, Baso % (Auto) 0.4, Absolute Neuts (auto) 6.0, Absolute Lymphs (auto) 0.99, Nucleated RBC % 0, Sodium 137, Potassium 3.9, Chloride 91 L, Carbon Dioxide 44.0 H, Anion Gap 2 L, BUN 28 H, Creatinine 1.15 H, Estim Creat Clear Calc 35.55, Est GFR (MDRD) Af Amer 57 L, Est GFR (MDRD) Non-Af 47 L, BUN/Creatinine Ratio 24.3 H, Glucose 112 H, Calcium 8.3 L Micro: Microbiology 12/07/23 19:20 Blood Culture (Wb) - Anticubital Right Blood Culture - Final No growth in 5 days. 12/08/23 01:41 Urine, Clean Catch Urine Culture - Final Culture exhibits no growth. 12/08/23 01:41 Urine, Random Legionella Antigen - Final 12/08/23 01:41 Urine, Random Streptococcus pneumoniae Antigen (M - Final 12/08/23 00:15 Mucosa - Nasopharyngeal Respiratory Panel (PCR) - Final 12/07/23 20:24 Mucosa - Nose SARS-CoV-2, Influenza & RSV (PCR) - Final ABG Data ABG results: ABG 12/12/23 12/12/23 09:21 10:49 Specimen Type ART ART Sample Site L Radial L Radial pH 7.31 L 7.34 L Bicarbonate Actual 47.3 H 50.3 H Total CO2 > 50 > 50 Base Excess 21 H 25 H O2 Saturation 98 98 O2 % 2.0 40.0 ABG pCO2 93.1 H* 92.4 H* ABG pO2 129 H 111 H Rehan Test Positive Positive O2 Delivery Device Cannula Not entered Vent Mode Not entered Not entered Crit Call To/Read Back Yes Yes Physical Exam Const alert Constitutional Narrative: frail, lethargic Orientation / Consciousness: lethargic HEENT normocephalic, head/scalp atraumatic, hearing grossly normal bilaterally, nasal mucous membranes and turbinates normal, moist oral mucous membranes and oropharynx normal Eyes PERRL, EOMs intact bilaterally and conjunctivae normal Neck full ROM, no lymphadenopathy and supple Lymph Lymphatic: no lymphadenopathy noted and no lymphedema noted Chest inspection of chest normal Resp normal respiratory effort and no use of accessory muscles Resp Narrative: mildly diminished breath sounds bibasally, no wheezes or crackles. Remains on BIPAP. Cardio S1 normal heart sound, S2 normal heart sound, no murmurs and peripheral pulses 2+ throughout Cardio Narrative: afib, tachycardic Rate: tachycardic GI normal to inspection, nondistended, normoactive bowel sounds, soft to palpation, non-tender and non-distended Back/Spine normal ROM Extremity normal to inspection, full ROM, normal capillary refill, no clubbing, cyanosis or edema, no calf tenderness and no pedal edema General Extremity: no tenderness to palpation of joints or extremities Skin no rashes or lesions noted General Skin Exam: no breakdown Neuro CN's II-XII intact bilaterally, moves all extremities, no focal motor deficits, no sensory deficits noted and deep tendon reflexes 2+ bilaterally Speech: speech normal Motor Exam: general weakness Psych Psych Narrative: lethargic. frail Assessment & Plan Assessment/Plan (1) Heart failure: (2) Emphysema/COPD: (3) Hypoxia: PLAN: Plan #Acute hypoxic and hypercapnic respiratory failure Likely due to heart failure. She was admitted with a complaint of productive cough and shortness of breath. Cough was productive of green to yellowish sputum. Chest x-ray showed possible left lower lobe interstitial infiltrate. Patient's ABG yesterday showed that her pCO2 had gone up to 84. pO2 was 77 and pH was 7.37. Bicarb had gone up to 48. Patient was placed on BiPAP. Remains BIPAP dependent. repeat ABG showed pCO2 is up to 92. Patient is increasingly more lethargic. to keep patient on BIPAP. Patient stated clearly on admission and to me when I took over her care that she does not wasnt CPR or intubation and wants to be DNRCCA no intubation on carvedilol 3.125mg bid and amiodarone 200mg bid. 2D echo done showed EF of 30% with moderate to severe global hypokinesis. Cardiology on board Titrate oxygen to maintain saturation above 90%. family meeting with hospice today. #New onset A-fib: Patient was in A-fib on admission. Robbi Vasc score is 4. On coreg 3.125mg bid. TSH within normal limits. hR has been difficult to conrol, as she has intermittent tachycardia still. #Acute heart failure with reduced ejection fraction: Likely due to new onset A-fib. Management as above. On Lasix and carvedilol. on IV lasix as she is still in positive fluid balance by 1.058L. #Pulmonary hypertension: Pulmonary artery pressure is 48 mmHg from the 2D echo. Likely due to the heart failure. Should improve as her heart failure improves. This is also likely contributing to her persistent shortness of breath. #Asymptomatic bacteriuria: Urinalysis showed 3+ bacteria. was on IV ceftriaxone. urine cultures negative. Antibiotics dc'd as she had no symptoms of UTI and urine cultures were negative. #History of CAD s/p stents: On aspirin and statin #Hypothyroidism: on synthroid. TSH WNL at 2.74 DVT prophylaxis: on eliquis PRognosis: poor Charges/Coding Visit Charges Inpatient E&M: 94920 Subs Hosp L3
[2023-12-13] MEDS: Amiodarone 200 MG Tablet PO ×2 (09:50→22:22)
[2023-12-13] MEDS: 0.9% Saline Lock 10 ML Syringe IV ×2 (09:54→17:59)
[2023-12-13] MEDS: Furosemide 40 MG/4 ML Vial IV ×2 (09:55→17:59)
--- NOTE | 2023-12-13 13:49 | CPS ---
nursing took patient off of bipap and placed on nasal cannula. unsure of time
--- NOTE | 2023-12-13 14:20 | CASEMGMT ---
Social Work Pt and family met w/hospice, pt to go back to [facility] tomorrow on hospice. Pt shares a room and double bed w/her twin sister Palak and there is not enough room in the studio they share for a hospital bed and double bed. ROBERTH called IBRAHIMA Hodgson at [facility], let her know we are looking at hospice for pt, she confirms not enough room for the double bed and hospital bed. Rema states they may have a hospital bed in the basement Palak can use, would like a day to get this out of the basement and up into the room. ROBERTH spoke w/pt's son and daughter in the room w/hospice. Hospice let family and pt know that pt is accepted, and asked them to coordinate w/[facility] regarding the bed for pt's sister Palak. SW let them know as per Rema at [facility], they do have a hospital bed in the basement that they can bring up. ROBERTH asked family to coordinate this, they will reach out to Palak's children to coordinate the bed for her. ROBERTH explained we will plan for discharge tomorrow to [facility] w/hospice to give a day for them to organize the beds. ROBERTH notified physician of the plan and of the above. Plan is for pt to be discharged to [facility] tomorrow on hospice. ROBERTH called Rema at [facility] back, message left asking her to coordinate w/family about bed for Palak and that the plan will be for pt to return to [facility] tomorrow on hospice. ROBERTH notified home health that pt will be going tomorrow to [facility] on hospice. CHERELLE Amaya
[2023-12-13] MEDS: APIXABAN 5 MG TABLET PO (22:22)
[2023-12-13] MEDS: Carvedilol 3.125 MG TABLET PO (22:22)
[2023-12-13] MEDS: Atorvastatin Calcium 20 MG Tablet PO (22:22)
[2023-12-14] MEDS: Levothyroxine 75 MCG Tablet PO (06:34)
[2023-12-14 06:56] LABS: Absolute Lymphocyte Count 0.93 X10^3/uL (0.83-4.51); Absolute Neutrophil Count 6.2 X10^3/uL (2.0-7.7); Basophil# 0.04 X10^3/uL; Basophil% 0.5 % (0-1); Eosinophil# 0.14 X10^3/uL; Eosinophils% 1.7 % (0-5); Hematocrit 49.2 % (37-47); Hemoglobin 15.2 g/dL (12.0-15.0); Lymphocyte # 0.93 X10^3/ul (0.83-4.51); Lymphocyte % 11.6 % (19-41); Mean Corp Hgb Conc 30.9 g/dL (32-36); Mean Corpuscular Hgb 30.8 pg (27.0-32.0); Mean Corpuscular Volume 99.6 fL (81-99); Mean Platelet Vol. 10.1 fl (6.2-12.0); Monocyte# 0.68 X10^3/uL; Monocyte% 8.5 % (0-10); NRBC Flagged by Analyzer 0 % (0-5); Neutrophil # 6.21 X10^3/uL (2.7-7.7); Neutrophil % 77.3 % (47-70); Platelet Count 112 K/mm3 (150-450); RBC Distribution Width CV 14.4 % (11.6-14.6); RBC Distribution Width SD 52.7 fl (35.1-43.9); Red Blood Count 4.94 M/mm3 (4.2-5.4)
[2023-12-14 07:15] VITALS: PULSE 96; RESP 24; O2SAT 94
[2023-12-14] MEDS: Ipratropium/Albuterol Sulfate 3 ML AMPUL.NEB INHALATION (07:15)
[2023-12-14 07:49] LABS: BUN 32 mg/dL (7-18); BUN/Creat Ratio 25.4 RATIO (10-20); Calcium,Total 8.8 mg/dL (8.5-10.1); Carbon Dioxide > 45.0 mmol/L (21.0-32.0); Chloride 96 mmol/L (98-107); Creatinine, Serum 1.26 mg/dL (0.55-1.02); EST Glomerular Filtration Rate 43 mL/min (>60); Est Glom Filt Rate - Afr Amer 52 mL/min (>60); Estimated Creatinine Clearance 32.45 ml/min; Glucose 115 mg/dL (74-106); Potassium 3.5 mmol/L (3.5-5.1); Sodium Level 141 mmol/L (136-145)
[2023-12-14 08:11] VITALS: BP 105/76; PULSE 90; RESP 20; TEMP 35.8; O2SAT 99
[2023-12-14 08:15] VITALS: O2SAT 99
[2023-12-14] MEDS: APIXABAN 5 MG TABLET PO (08:16)
[2023-12-14] MEDS: Amiodarone 200 MG Tablet PO (08:17)
[2023-12-14] MEDS: Aspirin E.C. 81 MG Tablet PO (08:17)
[2023-12-14] MEDS: Carvedilol 3.125 MG TABLET PO (08:17)
--- NOTE | 2023-12-14 10:33 | CASEMGMT ---
ROBERTH called [facility] and spoke with Rema, rn endoscopy. Rema said patient can return today , but asked that d/c not be until 2p so they can make sure the room is ready. ROBERTH notified physician. ROBERTH also checked in with Hospice to see if they will be setting up transport. Joanne Coats TEST INSPECTION ENGINEER EST[employer]
[2023-12-14 10:41] VITALS: BP 89/53
--- NOTE | 2023-12-14 11:49 | CASEMGMT ---
Hospice will turkey picker patient at 3p today. SW also asked Vesta with Hospice if they arranged for O2 to be delivered to [place] as patient is on 3L continuous. Plan: d/c back to [place] on [facility]. Hospice arranged for Phys[facility] to transport patient. Joanne Coats SUBSCRIPTION CREW LEADER [employer]
--- NOTE | 2023-12-14 12:15 | CASEMGMT ---
Addendum entered by Joanne Coats 12/14/23 12:18: SW notified patient's daughter Leonie via phone. Joanne BARRETO Original Note: Hospice arranged for patient to get picked up at 3p. SW notified RN and Physician. ROBERTH also notified IBRAHIMA Hodgson at [facility]. Rema said no DME has been delivered to patient's room yet. SW will touch base with Vesta at [facility]. ROBERTH sent Vesta and email asking if they ordered O2 and a bed for patient. Joanne BARRETO
--- NOTE | 2023-12-14 12:23 | CASEMGMT ---
Per Vesta with Hospice, O2, bed, and over the bed table were all ordered yesterday and are to be delivered today. Vesta said she will check to see if anything was delivered yet. oJanne Coats PARKING ENFORCEMENT SPECIALIST ESTEVAN
--- NOTE | 2023-12-14 12:35 | TREXTCAR_ITS ---
Diet Diet Order/Speech Therapy: 12/13/23 09:32 Diet: Regular - General Diet Comments: Leave tray at desk if patient is on BiPap Routine Orders/Code Status Enema Type: Fleetz Enema Frequency: Daily PRN O2 Frequency: PRN Keep PO Greater than or Equal to (%): 90 Therapies Weight Bearing: Weight bearing as tolerated Problem/Diagnosis (1) Heart failure: Status: Acute Code(s): I50.9 - Heart failure, unspecified (2) Emphysema/COPD: Status: Acute Code(s): J43.9 - Emphysema, unspecified (3) Hypoxia: Status: Acute Code(s): R09.02 - Hypoxemia Plan #Acute hypoxic and hypercapnic respiratory failure * Likely due to heart failure. She was admitted with a complaint of productive cough and shortness of breath. Cough was productive of green to yellowish sputum. * Chest x-ray showed possible left lower lobe interstitial infiltrate. * Patient's ABG yesterday showed that her pCO2 had gone up to 84. pO2 was 77 and pH was 7.37. Bicarb had gone up to 48. * Patient was placed on BiPAP. Remains BIPAP dependent. * repeat ABG showed pCO2 is up to 92. Patient is increasingly more lethargic. * to keep patient on BIPAP. Patient stated clearly on admission and to me when I took over her care that she does not wasnt CPR or intubation and wants to be DNRCCA no intubation * on carvedilol 3.125mg bid and amiodarone 200mg bid. * 2D echo done showed EF of 30% with moderate to severe global hypokinesis. * Cardiology on board * Titrate oxygen to maintain saturation above 90%. * family meeting with hospice today. * #New onset A-fib: * Patient was in A-fib on admission. * Robbi Vasc score is 4. * On coreg 3.125mg bid. TSH within normal limits. * hR has been difficult to conrol, as she has intermittent tachycardia still. * #Acute heart failure with reduced ejection fraction: * Likely due to new onset A-fib. Management as above. * On Lasix and carvedilol. * on IV lasix as she is still in positive fluid balance by 1.058L. * #Pulmonary hypertension: * Pulmonary artery pressure is 48 mmHg from the 2D echo. * Likely due to the heart failure. * Should improve as her heart failure improves. * This is also likely contributing to her persistent shortness of breath. #Asymptomatic bacteriuria: Urinalysis showed 3+ bacteria. was on IV ceftriaxone. urine cultures negative. Antibiotics dc'd as she had no symptoms of UTI and urine cultures were negative. #History of CAD s/p stents: On aspirin and statin #Hypothyroidism: on synthroid. TSH WNL at 2.74 DVT prophylaxis: on eliquis PRognosis: poor * Allergies/Procedures Done in Hospital Allergies adhesive tape Adverse Reaction (Intermediate, Verified 12/07/23 19:41) Rash Procedures: 2-D Echocardiogram Type of Care/Length of Stay Estimated LOS: Convalescent Care Less Than 30 days Type of Care Needed: Skilled Rehab Potential: Poor Prognosis: Poor Additional Orders/Day of Discharge Day of Discharge: 12/14/23 Dietary and Speech Recommendations Dietitian Recommendations/Changes: PO as tolerated with sodium-restricted diet with ensure compact w/ breakfast and dinner. Poor prognosis noted; possible comfort care--will sign-off. Discharge Plan Admission Admit Date/Time: 12/07/23 21:11 Primary Reason for Your Visit: acute hypoxic respiratory failure Attending Provider: Erica Devries Primary Care Provider: Wicho Kuo Consulting Providers: Marvin Bach; Aron Vargas; Valentin Quezada; Guillermina Vital; Delores Page; Kary Ruiz COOPERATIVE EDUCATION COORDINATOR Instructions Patient Instructions: Coping with Heart Failure Discharge Orders/Prescriptions Prescriptions: New furosemide 40 mg Tablet 40 mg PO DAILY Qty: 30 2RF amiodarone 200 mg Tablet 200 mg PO BID Qty: 60 2RF carvedilol 3.125 mg Tablet 3.125 mg PO BID Qty: 60 2RF Eliquis 5 mg Tablet 5 mg PO BID Qty: 60 2RF Continued levothyroxine 50 mcg tablet 50 mcg PO .SUMOWEFRI levothyroxine 75 mcg tablet 75 mcg PO TUTHSA simvastatin 40 mg tablet 40 mg PO QHS aspirin [Adult Low Dose Aspirin] 81 mg tablet,delayed release (DR/EC) 81 mg PO DAILY loperamide [Anti-Diarrheal (loperamide)] 2 mg capsule 2 mg PO Q6H PRN (Reason: loose stool) magnesium hydroxide [Milk of Magnesia] 400 mg/5 mL suspension 400 mg PO DAILY PRN (Reason: constipation) acetaminophen [Pain Relief (acetaminophen)] 325 mg tablet 650 mg PO Q4H PRN (Reason: pain, fever) Discontinued atenolol 50 mg tablet 50 mg PO DAILY hydrochlorothiazide 12.5 mg capsule 12.5 mg PO DAILY Referrals / Follow Up: Wicho Kuo MD [Primary Care Provider] - Disposition Disposition (needs filled in before D/C Order can be placed): Assisted Living
--- NOTE | 2023-12-14 12:39 | DS.PCM_ITS ---
Providers Date of Admission: 12/07/23 Date of Discharge: 12/14/23 Primary Care Physician: Dr. Wicho Kuo MD Consultations 12/08/23 15:30 Consult: Cardiology Routine Consulting Provider: Aron Vargas Reason for Consult: acute heart failure EMERGENT Consult: No Notified: Yes Date Notified: 12/08/23 Time Notified: 15:30 Method of Notification: Text 12/12/23 07:29 Consult: Sifter Operator / Pulmonary Medicine Routine Consulting Provider: Intensivists/Pulmonary Med Reason for Consult: acute hypoxic and hypercapnic respiratory failure EMERGENT Consult: No Notified: Yes Date Notified: 12/12/23 Time Notified: 07:55 Method of Notification: Text 12/12/23 14:58 Consult: Hospice / Palliative Care Routine Consulting Provider: [facility] Reason for Consult: acute hypoxic and hypercapnic respiratory failure EMERGENT Consult: No Notified: Yes Date Notified: 12/12/23 Time Notified: 14:35 Method of Notification: Answering Service Reason For Visit: CAP WITH HYPOXIA, AFIB Diagnosis Discharge Diagnosis (1) Heart failure: Status: Acute Code(s): I50.9 - Heart failure, unspecified (2) Emphysema/COPD: Status: Acute Code(s): J43.9 - Emphysema, unspecified (3) Hypoxia: Status: Acute Code(s): R09.02 - Hypoxemia Plan #Acute hypoxic and hypercapnic respiratory failure * Likely due to heart failure. She was admitted with a complaint of productive cough and shortness of breath. Cough was productive of green to yellowish sputum. * Chest x-ray showed possible left lower lobe interstitial infiltrate. * Patient's ABG yesterday showed that her pCO2 had gone up to 84. pO2 was 77 and pH was 7.37. Bicarb had gone up to 48. * Patient was placed on BiPAP. Remains BIPAP dependent. * repeat ABG showed pCO2 is up to 92. Patient is increasingly more lethargic. * to keep patient on BIPAP. Patient stated clearly on admission and to me when I took over her care that she does not wasnt CPR or intubation and wants to be DNRCCA no intubation * on carvedilol 3.125mg bid and amiodarone 200mg bid. * 2D echo done showed EF of 30% with moderate to severe global hypokinesis. * Cardiology on board * Titrate oxygen to maintain saturation above 90%. * family meeting with hospice today. * #New onset A-fib: * Patient was in A-fib on admission. * Robbi Vasc score is 4. * On coreg 3.125mg bid. TSH within normal limits. * hR has been difficult to conrol, as she has intermittent tachycardia still. * #Acute heart failure with reduced ejection fraction: * Likely due to new onset A-fib. Management as above. * On Lasix and carvedilol. * on IV lasix as she is still in positive fluid balance by 1.058L. * #Pulmonary hypertension: * Pulmonary artery pressure is 48 mmHg from the 2D echo. * Likely due to the heart failure. * Should improve as her heart failure improves. * This is also likely contributing to her persistent shortness of breath. #Asymptomatic bacteriuria: Urinalysis showed 3+ bacteria. was on IV ceftriaxone. urine cultures negative. Antibiotics dc'd as she had no symptoms of UTI and urine cultures were negative. #History of CAD s/p stents: On aspirin and statin #Hypothyroidism: on synthroid. TSH WNL at 2.74 DVT prophylaxis: on eliquis PRognosis: poor * Medications at Discharge Home Medications acetaminophen 325 mg tablet (Pain Relief (acetaminophen)) 650 mg PO Q4H PRN pain, fever 12/07/23 aspirin 81 mg tablet,delayed release (Adult Low Dose Aspirin) 81 mg PO DAILY CAD 12/07/23 levothyroxine 50 mcg tablet 50 mcg PO .SUMOWEFRI hypothyroidism 12/07/23 levothyroxine 75 mcg tablet 75 mcg PO TUTHSA hypothyroidism 12/07/23 loperamide 2 mg capsule (Anti-Diarrheal (loperamide)) 2 mg PO Q6H PRN loose stool 12/07/23 magnesium hydroxide 400 mg/5 mL oral suspension (Milk of Magnesia) 400 mg PO DAILY PRN constipation 12/07/23 simvastatin 40 mg tablet 40 mg PO QHS 12/07/23 amiodarone 200 mg tablet 200 mg PO BID #60 tabs 12/14/23 apixaban 5 mg tablet (Eliquis) 5 mg PO BID #60 tabs 12/14/23 carvedilol 3.125 mg tablet 3.125 mg PO BID #60 tabs 12/14/23 furosemide 40 mg tablet 40 mg PO DAILY #30 tabs 12/14/23 Hospital Course Operations None Procedures 2-D Echocardiogram Summary of Care Provided Minutes Spent on Discharge: 62 Hospital Course: Patient is an 88-year-old female with a past medical history as outlined was admitted through the ED on 12/07/2023 with a complaint of productive cough and shortness of breath for 3 days prior to admission. She was on 3 L of oxygen at the time she came in. Patient lives at [facility] living facility was usually able to do all her activities of daily living without issue. She had however developed a cough with greenish-yellowish sputum about 3 days prior to admission and started having worsening shortness of breath. She denied any fever or chills and denied any sick contacts. On admission she was hypoxic at 85% on room air and required 3 L to go up to the mid 90s. She was in A-fib with a heart rate in the 90s 200s. Labs were significant for sodium of 146 and bicarb of 38 and BNP was 588. EKG showed A-fib which was rate controlled. Urinalysis showed 3+ bacteria and 100 leukocyte esterase but no nitrites. Chest x-ray showed possible left lower lobe interstitial infiltrate and CT of the chest without contrast showed small bilateral pleural effusion with minimal associated airspace disease likely atelectasis rather than pneumonia and also showed evidence of diffuse centrilobular emphysema and left upper lobe abdomen scarring as well as cardiomegaly. She was admitted and managed for new onset atrial fibrillation and probable new onset heart failure exacerbation with unknown EF. She was diuresed with IV Lasix. Patient had a long and complicated hospital course as she became BiPAP dependent. She could not be weaned off the BiPAP and ABGs done showed that she had elevated pCO2 with a pCO2 going as high as the 90s. Bicarb also trended upwards. She was placed on carvedilol and amiodarone for her A-fib. 2D echo showed EF of 30% with moderate to severe global hypokinesis. Cardiology was on board and pulmonology was also consulted because of patient becoming BiPAP dependent. Patient subsequently stated that she did not want any further treatment and in her words wanted to check out of life. Goals of care were discussed with patient and her daughter and son and they eventually decided for hospice consultation. Hospice was consulted and saw patient. Patient was agreeable to signing up with hospice and was amenable to going back to assisted living facility with hospice. Patient was therefore discharged to hospice medical facility on 12/14/2023. Patient was seen and examined prior to discharge. She had no complaints and was lying comfortably in bed. She was on 3 L of oxygen. She denied any fever or chills, palpitations, dizziness, nausea or vomiting or any other symptoms. Review of systems otherwise negative. Labs and vitals reviewed. Home medication reviewed and reconciled. Physical Exam Const alert, oriented x3 and no apparent distress Constitutional Narrative: frail General Appearance: cooperative Orientation / Consciousness: awake and lethargic HEENT normocephalic, head/scalp atraumatic, hearing grossly normal bilaterally, nasal mucous membranes and turbinates normal, moist oral mucous membranes and oropharynx normal Mouth: oral and palatal mucosa normal Eyes PERRL, EOMs intact bilaterally and conjunctivae normal Neck full ROM, no lymphadenopathy and supple Lymph Lymphatic: no lymphadenopathy noted and no lymphedema noted Chest inspection of chest normal Resp normal respiratory effort and no use of accessory muscles Resp Narrative: mildly diminished breath sounds bibasally, no wheezes or crackles. On 3 L of oxygen. Cardio regular rate, S1 normal heart sound, S2 normal heart sound, no murmurs and peripheral pulses 2+ throughout Cardio Narrative: afib, Rate: tachycardic GI normal to inspection, nondistended, normoactive bowel sounds, soft to palpation, non-tender and non-distended Back/Spine normal ROM Extremity normal to inspection, full ROM, normal capillary refill, no clubbing, cyanosis or edema, no calf tenderness and no pedal edema General Extremity: no tenderness to palpation of joints or extremities Skin no rashes or lesions noted General Skin Exam: no breakdown Neuro CN's II-XII intact bilaterally, moves all extremities, no focal motor deficits, no sensory deficits noted and deep tendon reflexes 2+ bilaterally Speech: speech normal Motor Exam: strength 5/5 throughout and general weakness Psych mental status grossly normal, thought process normal and cooperative Psych Narrative: lethargic. frail Appearance: appropriate Weight / BMI Weight Weight: 163 lb 5.8 oz Body Mass Index (BMI) 25.5 ABG / Lab / Microbiology Data 12/14/23 06:28 12/14/23 06:28 Laboratory: Laboratory Results - last 24 hr 12/14/23 06:28: WBC 8.0, RBC 4.94, Hgb 15.2 H, Hct 49.2 H, MCV 99.6 H, MCH 30.8, MCHC 30.9 L, RDW Std Deviation 52.7 H, RDW Coeff of Claudia 14.4, Plt Count 112 L, MPV 10.1, Immature Gran % (Auto) 0.400, Neut % (Auto) 77.3 H, Lymph % (Auto) 11.6 L, [place] % (Auto) 8.5, Eos % (Auto) 1.7, Baso % (Auto) 0.5, Absolute Neuts (auto) 6.2, Absolute Lymphs (auto) 0.93, Nucleated RBC % 0, Sodium 141, Potassium 3.5, Chloride 96 L, Carbon Dioxide > 45.0 H*, Anion Gap TNP, BUN 32 H, Creatinine 1.26 H, Estim Creat Clear Calc 32.45, Est GFR (MDRD) Af Amer 52 L, E st GFR (MDRD) Non-Af 43 L, BUN/Creatinine Ratio 25.4 H, Glucose 115 H, Calcium 8.8 Microbiology: Microbiology 12/07/23 19:20 Blood Culture (Wb) - Anticubital Right Blood Culture - Final No growth in 5 days. 12/08/23 01:41 Urine, Clean Catch Urine Culture - Final Culture exhibits no growth. 12/08/23 01:41 Urine, Random Legionella Antigen - Final 12/08/23 01:41 Urine, Random Streptococcus pneumoniae Antigen (M - Final 12/08/23 00:15 Mucosa - Nasopharyngeal Respiratory Panel (PCR) - Final 12/07/23 20:24 Mucosa - Nose SARS-CoV-2, Influenza & RSV (PCR) - Final D/C Instructions Discharge Diet: Low fat / Low cholesterol Discharge Activity: Return to Normal Activity Call your doctor if you observe: Fever of 101 or Higher, Shortness of breath, Dizziness, Swelling in the ankles and Chest pain Meaningful Use Info Meaningful Use Meaningful Use Diagnoses (Choose all that apply): CHF CHF KIARA/ARB ordered at discharge?: No Reason KIARA/ARB not ordered?: Worsening renal function Documented LVEF (%): 30 Ischemic Stroke Statin Dosing Therapy Reference: STATIN DOSE THERAPY REFERENCE: * Patients > 75 years receive moderate or high dose statin therapy. * Patients 75 years or YOUNGER should receive HIGH intensity statin dose unless contraindicated. You will be required to document reason for non-treatment if statin daily dose does not meet guidelines. HIGH DOSE STATIN THERAPY DAILY Atorvastatin > than or = to 40 mg Rosuvastatin > than or = to 20 mg Amlodipine + Atorvastatin > than or = to 2.5/40 mg Ezetimibe + Simvastatin 10/80 mg Simvastatin 80mg Discharge Plan Admission Admit Date/Time: 12/07/23 21:11 Primary Reason for Your Visit: acute hypoxic respiratory failure Attending Provider: Erica Devries Primary Care Provider: Wicho Kuo Consulting Providers: Marvin Bach; Aron Vargas; Valentin Quezada; Guillermina Vital; Delores Page; Kary Ruiz RECRUITING CONSULTANT Instructions Patient Instructions: Coping with Heart Failure Discharge Orders/Prescriptions Prescriptions: New furosemide 40 mg Tablet 40 mg PO DAILY Qty: 30 2RF amiodarone 200 mg Tablet 200 mg PO BID Qty: 60 2RF carvedilol 3.125 mg Tablet 3.125 mg PO BID Qty: 60 2RF Eliquis 5 mg Tablet 5 mg PO BID Qty: 60 2RF Continued levothyroxine 50 mcg tablet 50 mcg PO .SUMOWEFRI levothyroxine 75 mcg tablet 75 mcg PO TUTHSA simvastatin 40 mg tablet 40 mg PO QHS aspirin [Adult Low Dose Aspirin] 81 mg tablet,delayed release (DR/EC) 81 mg PO DAILY loperamide [Anti-Diarrheal (loperamide)] 2 mg capsule 2 mg PO Q6H PRN (Reason: loose stool) magnesium hydroxide [Milk of Magnesia] 400 mg/5 mL suspension 400 mg PO DAILY PRN (Reason: constipation) acetaminophen [Pain Relief (acetaminophen)] 325 mg tablet 650 mg PO Q4H PRN (Reason: pain, fever) Discontinued atenolol 50 mg tablet 50 mg PO DAILY hydrochlorothiazide 12.5 mg capsule 12.5 mg PO DAILY Referrals / Follow Up: Wicho Kuo MD [Primary Care Provider] - Disposition Disposition (needs filled in before D/C Order can be placed): Assisted Living Charges/Coding Visit Charges Inpatient E&M: 39869 Disch Hosp >30min
--- NOTE | 2023-12-14 12:42 | CASEMGMT ---
Vesta with Hospice confirmed that a bed, O2, nebulizer, and over the bed table were ordered yesterday. All items are on the delivery truck which is currently in [place] for a delivery then will go to [place], and then [place]. Plan: d/c back to [place] with [facility]. Hospice arranged for Phys[facility] to transport patient at 3p. Joanne Coats HOUSE PAINTERNehemiah BARRETO
--- NOTE | 2023-12-14 12:45 | CASEMGMT ---
ROBERTH faxed d/c instructions to IBRAHIMA Hodgson at [place]. ROBERTH also let Rema know that patient will be picked up at . Joanne Coats MSW CAB STARTER
--- NOTE | 2023-12-14 13:08 | PHA.DC.MR.R ---
Pharmacy [place] Med Reconciliation Pharmacy Service has performed discharge medication reconciliation for this patient. The patient's discharge medication list was reviewed for discrepancies and discrepancies were resolved. Medications at Discharge Home Medications acetaminophen 325 mg tablet (Pain Relief (acetaminophen)) 650 mg PO Q4H PRN pain, fever 12/07/23 aspirin 81 mg tablet,delayed release (Adult Low Dose Aspirin) 81 mg PO DAILY CAD 12/07/23 levothyroxine 50 mcg tablet 50 mcg PO .SUMOWEFRI hypothyroidism 12/07/23 levothyroxine 75 mcg tablet 75 mcg PO TUTHSA hypothyroidism 12/07/23 loperamide 2 mg capsule (Anti-Diarrheal (loperamide)) 2 mg PO Q6H PRN loose stool 12/07/23 magnesium hydroxide 400 mg/5 mL oral suspension (Milk of Magnesia) 400 mg PO DAILY PRN constipation 12/07/23 simvastatin 40 mg tablet 40 mg PO QHS 12/07/23 amiodarone 200 mg tablet 200 mg PO BID #60 tabs 12/14/23 apixaban 5 mg tablet (Eliquis) 5 mg PO BID #60 tabs 12/14/23 carvedilol 3.125 mg tablet 3.125 mg PO BID #60 tabs 12/14/23 furosemide 40 mg tablet 40 mg PO DAILY #30 tabs 12/14/23
--- NOTE | 2023-12-14 14:27 | CASEMGMT ---
ROBERTH called [facility] and patient's bed and equipment were delivered. Joanne BARRETO
--- NOTE | 2023-12-14 14:43 | NURSING ---
Report called to Yogi at [place]. Patient slat pickler time is 1500.
--- NOTE | 2023-12-14 14:48 | CHAPLAIN ---
Type of Pastoral Visit _x__ Initial Visit ___ Follow-up Visit ___ On-call Visit ___ General Patient Visit ___ Spiritual Assessment ___ Family Conference ___ Bereavement ___ Rapid Response ___ Code Blue ___ Other (describe below) Pastoral Care Referral From _x__ Patient ___ Family ___ Nurse ___ Physician ___ Toll Bridge Attendant ___ Continuous Mining Operator ___ Other (describe below) Sacrament/Intervention _x__ Active listening ___ Anointing ___ Restoration ___ Bereavement ___ Communion _x__ Diana exploration ___ _x__ Life review _x__ Prayer ___ Reconciliation ___ Sacrament of Sick ___ Supportive presence ___ Wedding ___ Other (describe below) Pastoral Comments patient is very welcoming when she learns that this visit is from the measurement specialist; pt is very expressive about her diana in [place] and that I am ready to go to [facility]; pt starts to sing a couple of her favorite hymns and this measurement specialist and her family members sing along; pt becomes tearful; pt takes hold of the hand of this measurement specialist and begins to 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
== END 2023-12-14 15:50 | disposition hospice, inpatient (51) | DRG 291 ==
LOC: ED 20:24 → PCU 21:31
PROVIDERS: Admitting Provider Hospitalist; Emergency Provider Student in an Organized Health Care Education/Training Program; PCP Family Medicine; Visit Provider Student in an Organized Health Care Education/Training Program
DX: I11.0 Hypertensive heart disease with heart failure (principal); J96.01 Acute respiratory failure with hypoxia; J18.9 Pneumonia, unspecified organism; I50.23 Acute on chronic systolic (congestive) heart failure; J96.02 Acute respiratory failure with hypercapnia; I27.21 Secondary pulmonary arterial hypertension; J43.2 Centrilobular emphysema; I48.91 Unspecified atrial fibrillation; E03.9 Hypothyroidism, unspecified; I25.10 Atherosclerotic heart disease of native coronary artery without angina pectoris; E78.5 Hyperlipidemia, unspecified; I95.2 Hypotension due to drugs; T44.7X5A Adverse effect of beta-adrenoreceptor antagonists, initial encounter; R82.71 Bacteriuria; Z95.5 Presence of coronary angioplasty implant and graft; Z66 Do not resuscitate; Z79.82 Long term (current) use of aspirin; Z79.899 Other long term (current) drug therapy; Z87.891 Personal history of nicotine dependence
CPT/HCPCS: 36415; 36600; 71045; 71250; 80048; 80053; 81001; 82803; 83605; 83880; 84443; 84484; 85025; 85027; 85610; 85730; 87040; 87086; 87449; 87631; 87633; 93005; 93306; 94002; 94003; 94640; 97110; 97162; 97166; 97530; 97802; 99285; J7030; J7040; J7120; Q9957; A4216; C8929; J1940; J2405